=== PATIENT | male | born 1950 | race Caucasian/White ===

== ENCOUNTER → 2018-10-17 10:15 | Outpatient (CLI) | payer MEDICARE | END | disposition home or self-care (01) | LOC: D.US 10:15 | DX: E04.1 Nontoxic single thyroid nodule (principal) ==

== ENCOUNTER 2020-11-25 19:33 | Inpatient (IN) | payer MEDICARE ==
[~2020-11-25] VITALS: Ht 182.9 cm; Wt 68.6 kg
--- NOTE | ~2020-11-25 | HEMODYNAMI ---
PATIENT:ROSALIA NEWELL MEDICAL RECORD: [id number] : 54 LOCATION:[id number] ADMISSION DATE: 11/25/20 Generatedon:111:00 Patient name: ROSALIA NEWELL Patient #: [id number] SSN: : 1950 Date of study: 11/27/2020 Page: Of Hemodynamic Procedure Report Patient Data Patient Demographics Procedure consent was obtained First Name: ROSALIA Gender: Male Last Name: REECE : 1950 Patient #: [id number] Age: 70 year(s) Race: Additional ID: [id number] Contact details Address: [address] [address] State: [place] City: [place] Zip code: [address] Admission Admission Data Admission Date: 11/25/2020 Admission Time: 20:50 Arrival Date: 11/25/2020 Arrival Time: 20:50 Admit Source: Emergency Insurance Payor: Medicare department [facility] #: [id number] Room #: [id number] Height (in.): 71.65 BSA: 2 (m2) Height (cm.): 182 BMI: 23.85 (kg/m2) Weight (lbs.): 174.17 Weight (kg.): 79 Lab Results Lab Result Date: 11/27/2020 Lab Result Time: 0:00 Biochemistry Name Units Result Min Max BUN mg/dl 24 --(----)-* 7 18 Creatinine mg/dl 1.3 --(---*)-- 0.6 1.3 eGFR ml/min 58 *-(----)-- 90 120 NONAFRICAN CBC Name Units Result Min Max Hemoglobin g/dl 12.9 -*(----)-- 13.5 17.5 Procedure Procedure Types Cath Procedure Diagnostic Procedure LHC LH w/Coronaries Sedation Charges Moderate Sedation 25-39 minutes PCI Procedure Coronary Stent Coronary Stent Initial x2 Hemochron ACT Test Procedure Description Procedure Date Procedure Date: 11/27/2020 Procedure Start Time: 10:23 Procedure End Time: 10:55 Procedure Staff Name Function Eder Rebolledo MD Performing Physician Brooke Martini RT Monitor Rosalinda Ward RT Scrub Wilmer Frye RN Nurse Procedure Data Cath Procedure Fluoroscopy Diagnostic fluoroscopy Total fluoroscopy Time: 9.9 time: 9.9 min min Diagnostic fluoroscopy Total fluoroscopy dose: dose: 1033 mGy 1033 mGy Contrast Material Contrast Material Type Amount (ml) Isovue 300 178 Entry Location Entry Primary Successful Side Size Upsize Upsize Entry Closure Martínez ccessful Closure Location (Fr) 1 (Fr) 2 (Fr) Remarks Device Remarks Radial Right 6 Fr Mechanical artery Short Compression Estimated blood loss: 5 ml Diagnostic catheters Device Type Used For End Catheter Placement DIAGNOSTIC [place] 110cm 5 Multi-vessel Fr catheter ([id number]) Angiography Procedure Complications No complications Procedure Medications Medication Administration Route Dosage Oxygen etCO2 Nasal cannula 2 l/min Lidocaine 2% 20 Heparin Flush Bag added to field 2 bags (1000units/500ml NS) 0.9% NaCl I.V. 100 ml/hr Versed I.V. 0.5 mg Fentanyl I.V. 25 mcg Radial Cocktail I.A. 1 syringe (Verapamil 2mg/Nitro 400mcg/Heparin 1500units) Versed I.V. 0.5 mg Fentanyl I.V. 25 mcg Heparin Bolus I.V. 5000 units Integrilin (Bolus I.V. 7.3 ml 2mg/ml) Integrilin Drip I.V. drip 12.6 ml/hr (75mg/100ml) Vasotec 2.5 mg Hemodynamics Rest BSA: 2 (m2) HGB: 12.9 (g/dl) O2 Consumption: Estimated: 236.92 (ml/min) O2 Consu mption indexed: Estimated:118.46 (ml/min/m) Heart Rate: 76 (bpm) Pressure Samples Time Site Value (mmHg) Purpose Heart Use Rate(bpm) 10:25 LV 100/8,10 Snapshot 72 10:26 AO 96/66(79) Pullback 70 10:26 LV 96/5,10 Pullback 70 Gradients Valve Time Site 1 Site 2 Mean SEP/DFP Peak To Heart Use (mmHg) (sec/min) Peak Rate (mmHg) (bpm) Aortic 10:26 LV AO 0 1 0 70 96/5,10 96/66(79) Calculations Valve P-P Mean Valve Index Valve Source Name Gradient Area Flow (cm2) Aortic 0 0 0 0 Snapshots Pre Cath Intra NCS Post Cath Vital Signs Time Heart Resp SPO2 etCO2 NIBP (mmHg) Rhythm Pain Sedation Rate (ipm) (%) (mmHg) Status Level (bpm) 10:15:35 77 14 98 1.5 154/98(123) NSR 0 (11) 8(A) , No pain 10:19:53 76 13 99 0.7 151/93(121) NSR 0 (11) 8(A) , No pain 10:24:11 75 14 99 1.5 139/82(109) NSR 0 (11) 8(A) , No pain 10:28:23 79 13 98 12.1 124/81(95) NSR 0 (11) 8(A) , No pain 10:32:35 76 12 98 13.6 135/84(106) NSR 0 (11) 8(A) , No pain 10:36:51 77 14 99 18.9 146/88(110) NSR 0 (11) 8(A) , No pain 10:41:07 74 13 99 15.9 152/91(122) NSR 0 (11) 8(A) , No pain 10:45:27 73 13 99 1.5 156/90(126) NSR 0 (11) 8(A) , No pain 10:49:49 74 14 99 9.8 165/98(127) NSR 0 (11) 8(A) , No pain 10:54:15 75 16 100 9.1 170/105(143) NSR 0 (11) 8(A) , No pain Medications Time Medication Route Dose Verified Delivered Reason Not es Effectiveness by by 10:15:28 Oxygen etCO2 2 l/min Eder Guillen used for Nasal St Jamison Frye RN procedure cannula 10:16:06 Lidocaine 2% 20ml Eder Gaines for local vial [facility] anesthetic MD BATISTA 10:16:12 Heparin Flush added 2 bags Eder Gaines used for Bag to [facility] procedure (1000units/500ml field MD BATIST[place] NS) 10:16:21 0.9% NaCl I.V. 100 Eder Guillen Per physician ml/hr St Jamison Frye RN, MD 10:16:42 Versed I.V. 0.5 mg Eder Guillen for sedation St Jamison Frye RN, MD 10:16:53 Fentanyl I.V. 25 mcg Eder Guillen for sedation St Jamison Frye RN, MD 10:23:28 Radial Cocktail I.A. 1 Eder Gaines for (Verapamil syringe AmauryJamison Rebolledo vasodilation 2mg/Nitro MD BATISTA 400mcg/Heparin 1500units) 10:23:40 Versed I.V. 0.5 mg Eder Gaines for sedation St Jamison Rebolledo MD, MD 10:23:43 Fentanyl I.V. 25 mcg Eder Gaines for sedation St Jamison Rebolledo MD, MD 10:31:22 Heparin Bolus I.V. 5000 Eder Guillen for gianna ified units St Jamison Frye RN anticoagulation with dr MD wilson 10:33:03 Integrilin I.V. 7.3 ml Eder Guillen for was tl 2.7 (Bolus 2mg/ml) St Jamison Frye RN antiplatelet ml of vial MD therapy 10:51:26 Integrilin Drip I.V. 12.6 Eedr bonilla To be (75mg/100ml) drip ml/hr St Jamison Frye RN antiplatelet infusing MD therapy until cleared to take antiplatelet by mouth. 10:51:55 Vasotec IV 2.5 mg Eder Guillen Per physician St Jamison Frye RN, MD Procedure Log Time Note 9:41:27 Diagnostic Cath Status : Urgent 9:42:00 Informed consent obtained and on chart 9:42:12 Admit Source: Emergency department 9:42:17 Arrival Date: 11/25/2020 8:50:00 PM 9:42:43 Insurance Payor : Medicare 9:42:46 Patient Height : 71.65 inches 9:42:50 Patient Weight : 174.17 lbs 9:43:44 Lab Result : eGFR NONAFRICAN 58 ml/min 9:43:44 Lab Result : Creatinine 1.3 mg/dl 9:43:44 Lab Result : BUN 24 mg/dl 9:43:44 Lab Result : Hemoglobin 12.9 g/dl 9:43:52 Procedure Status Urgent Heart Cath (IP). 9:43:58 Wilmer Frye RN sent for patient. Start room use. 9:44:00 Time tracking: Regular hours (M-F 7:00 - 5:00) 9:44:04 Plan of Care:Hemodynamics will remain stable., Cardiac rhythm will remain stable., Comfort level will be maintained., Respiratory function will remain adequate., Patient/ family verbilizes understanding of procedure., Procedure tolerated without complication., Recovers from procedure without complications.. 10:01:37 Patient received from Med/Surg to CCL 1 Alert and oriented. Tansferred to table in Supine position. 10:01:38 Warm blankets applied, and mitra hugger turned on for patient comfort. 10:01:39 Correct patient and procedure confirmed by team. 10:01:39 ECG and BP/O2 sat monitors applied to patient. 10:14:27 Baseline sample Acquired. 10:14:27 Vital chart was started 10:14:38 Full Disclosure recording started 10:14:42 H&P Date Dictated: 11/27/2020 New H&P dictated by physician.. 10:14:44 Pre-procedure instructions explained to patient. 10:14:44 Pre-op teaching completed and patient verbalized understanding. 10:14:48 Family in patients room. 10:14:49 Patient NPO since Midnight. 10:15:28 Oxygen 2 l/min etCO2 Nasal cannula was administered by Wilmer Frye RN; used for procedure; Verbal order read back and verified. 10:15:36 Is the patient allergic to Iodine/contrast media? No. 10:15:36 Was the patient premedicated? Yes 10:15:37 Is patient on blood thinner?No 10:15:39 Patient diabetic? Unknown. 10:15:43 Previous problem with sedation/anesthesia? Unknown ? 10:15:45 Snore? Unknown 10:15:47 Sleep apnea? Unknown 10:15:48 Deviated septum? Unknown 10:15:52 Opens mouth fully? Unknown 10:15:53 Sticks out tongue? Unknown 10:15:55 Airway obstruction? Unknown ? 10:15:58 Dentures? Unknown ? 10:16:03 Pre procedure: right dorsailis pedis pulse 1+ Palpable, but thready & weak; easily obliterated 10:16:06 Lidocaine 2% 20ml vial was administered by Eder Rebolledo MD; for local anesthetic; Verbal order read back and verified. 10:16:06 Pre procedure: left dorsailis pedis pulse 1+ Palpable, but thready & weak; easily obliterated 10:16:08 Patient pain scale 0/10 ?. 10:16:12 Heparin Flush Bag (1000units/500ml NS) 2 bags added to field was administered by Eder Rebolledo MD; used for procedure; Verbal order read back and verified. 10:16:14 IV patent on arrival in right forearm with 0.9% NaCl at [facility]. 10:16:15 Lab results completed and on chart. 10:16:20 Right Radial & Right Groin area was prepped with chlora-prep and draped in sterile fashion 10:16:21 0.9% NaCl 100 ml/hr I.V. was administered by Wilmer Frye RN; Per physician; Verbal order read back and verified. 10:16:21 Alarms reviewed by R. N. 10:16:22 Sharps counted by scrub and verified by R.N. 10:16:23 Physician arrived 10:16:23 Final Timeout: patient, procedure, and site verified with staff and physician. All members of the team are in agreement. 10:16:24 --------ALL STOP TIME OUT------ 10:16:26 Right Radial & Right Groin site verified by team. 10:16:30 Fire Safety Assessment: A--An alcohol-based skin anteseptic being used preoperatively., C--Open oxygen or nitrous oxide is being used., D--An ESU, laser, or fiber-optic light is being used. 10:16:34 Physical assessment completed. ASA score P 3 - A patient with severe systemic disease as per Eder Rebolledo MD. 10:16:42 Versed 0.5 mg I.V. was administered by Wilmer Frye RN; for sedation; Verbal order read back and verified. 10:16:53 Fentanyl 25 mcg I.V. was administered by Wilmer Frye RN; for sedation; Verbal order read back and verified. 10:17:13 3a) 45-59 Moderately reduced kidney function. 10:17:16 Maximum allowable contrast dose (3.7 X eGFR X 0.75)160 ml. 10:17:20 Sedation plan: IV Moderate Sedation Medication:Versed, Fentanyl 10:17:30 Use device set Radial Dx or PCI 10:17:31 ACIST Syringe (82510) opened to sterile field. 10:17:31 Medline Cath Pack ([id number]) opened to sterile field. 10:17:32 Bag Decanter (2001S) opened to sterile field. 10:17:32 ACIST Hand Control (74366) opened to sterile field. 10:17:33 ACIST Manifold (82795) opened to sterile field. 10:17:34 Tegaderm 4 x 4 (1626W) opened to sterile field. 10:17:35 MBrace Wrist Support ([id number]) opened to sterile field. 10:17:36 SHEATH 6FR RAIN (4933052) opened to sterile field. 10:17:37 EMERALD Guide Wire (507-244) opened to sterile field. 10:18:23 Family of pt was in room upon transfer to laborer road. Pt was non responisive to verbal and is a fall risk. 10:23:28 Radial Cocktail (Verapamil 2mg/Nitro 400mcg/Heparin 1500units) 1 syringe I.A. was administered by Eder Rebolledo MD; for vasodilation; Verbal order read back and verified. 10:23:39 Procedure started. 10:23:40 Versed 0.5 mg I.V. was administered by Eder Rebolledo MD; for sedation; Verbal order read back and verified. 10:23:42 Local anesthetic to right radial artery with Lidocaine 2% by Eder Rebolledo MD.INITIAL ACCESS ONLY 10:23:43 Fentanyl 25 mcg I.V. was administered by Eder Rebolledo MD; for sedation; Verbal order read back and verified. 10:23:51 A 6 Fr Short sheath was inserted into the Right Radial artery 10:24:00 A DIAGNOSTIC [place] 110cm 5 Fr catheter ([id number]) was advanced over the wire and used for Multi-vessel Angiography. 10:25:46 LV hemodynamics recorded. 10:25:47 LV gram done using PALOMINO 10:25:49 Injector settings: Ml/sec: 5, Volume: 15, 10:25:56 EF : 55 % 10:25:59 RCA angiography performed. 10:26:01 Injector settings: Ml/sec: 3, Volume: 6, 10:26:35 LCA angiography performed. 10:26:38 Injector settings: Ml/sec: 3, Volume: 6, 10:28:55 Catheter removed. 10:29:44 Asahi Minamo 300cm wire opened to sterile field. 10:29:45 INFLATOR Merit BasixCompak (CP3983) opened to sterile field. 10:29:45 GUIDE 6FR XBLAD 3.5 catheter ([id number]) opened to sterile field. 10:29:52 INFLATOR Merit BasixCompak (PJ8905) opened to sterile field. 10:31:22 Heparin Bolus 5000 units I.V. was administered by Wilmer Frye RN; for anticoagulation; verified with dr wilson Verbal order read back and verified. 10:31:34 Proceeding to intervention. 10:31:42 6 Fr XBLAD 3.5 guide catheter was inserted over the wire 10:31:46 MINAMO wire advanced. 10:33:03 Integrilin (Bolus 2mg/ml) 7.3 ml I.V. was administered by Wilmer Frye RN; for antiplatelet therapy; wasted 2.7 ml of vial Verbal order read back and verified. 10:34:08 Wire advanced across lesion. 10:36:39 Place stent Inflation Number: 1 A INTEGRITY RX 3.5 x 15 stent ([id number]) was prepped and advanced across the Mid CX 90. The stent was deployed at 14 [place] for 0:30 (min:sec) 0. 10:37:32 Stent catheter was removed intact over wire. 10:39:46 Place stent Inflation Number: 1 A INTEGRITY RX 3.5 x 15 stent ([id number]) was prepped and advanced across the Prox CX 90. The stent was deployed at 14 [place] for 0:30 (min:sec) 0. 10:42:27 Stent catheter was removed intact over wire. 10:42:33 Wire redirected to LAD. 10:45:26 Inflate balloon Inflation number: 1 A EUPHORA 3.0 x 15 Balloon ([id number]) was prepped and advanced across the Mid LAD 90, then inflated to 14 [place] for 0:30 (min:sec) . 10:45:46 Inflation number: 2 The EUPHORA 3.0 x 15 Balloon ([id number]) was reinflated across the Mid LAD , to 14 [place] for 0:30 (min:sec) . 10:46:14 Inflation number: 3 The EUPHORA 3.0 x 15 Balloon ([id number]) was reinflated across the Mid LAD , to 14 [place] for 0:30 (min:sec) . 10:46:35 Inflation number: 1 The EUPHORA 3.0 x 15 Balloon ([id number]) was reinflated across the Prox LAD 90, to 14 [place] for 0:30 (min:sec) . 10:47:09 Inflation number: 2 The EUPHORA 3.0 x 15 Balloon ([id number]) was reinflated across the Prox LAD , to 14 [place] for 0:30 (min:sec) . 10:47:49 Inflation number: 3 The EUPHORA 3.0 x 15 Balloon ([id number]) was reinflated across the Prox LAD , to 16 [place] for 0:30 (min:sec) . 10:48:28 Balloon removed over the wire. 10:51:26 Integrilin Drip (75mg/100ml) 12.6 ml/hr I.V. drip was administered by Wilmer Frye RN; for antiplatelet therapy; To be infusing until cleared to take antiplatelet by mouth. Verbal order read back and verified. 10:51:35 Place stent Inflation Number: 4 A INTEGRITY RX 3.0 x 18 stent ([id number]) was prepped and advanced across the Mid LAD 90. The stent was deployed at 16 [place] for 0:30 (min:sec) 0. 10:51:51 Stent catheter was removed intact over wire. 10:51:53 Wire removed. 10:51:54 Guide catheter removed. 10:51:55 Vasotec 2.5 mg IV was administered by Wilmer Frye RN; Per physician; Verbal order read back and verified. 10:52:05 ZEPHYR REGULAR TR BAND ([id number]) opened to sterile field. 10:52:30 Sheath removed intact; hemostasis achieved with Mechanical Compression to the Right Radial artery. 10:52:35 Procedure ended.(Physican Out) 10:53:01 Fluoroscopy time 09.90 minutes. 10:53:05 Flurop Dose total: 1033 10:53:05 Fluoroscopy dose: 1033 mGy 10:53:10 Dose Area Product 17250 mGy/cm. 10:53:14 Contrast amount:Isovue 300 178ml. 10:53:17 Maximum allowable dose exceeded? Yes. 10:53:20 [place] band inflated with 12cc of air. 10:53:27 Post right radial artery:stable 10:53:28 Post Procedure Pulses reassessed and unchanged 10:53:31 Post procedure rhythm: unchanged. 10:53:34 Estimated blood loss: 5 ml 10:53:36 Post procedure instruction explained to patient.Patient verbalizes understanding. 10:53:36 Patient needs reinforcement of post procedure teaching. 10:55:19 Procedure type changed to Cath procedure, Diagnostic procedure, LHC, [facility] w/Coronaries, Sedation Charges, Moderate Sedation 25-39 minutes, PCI procedure, Coronary Stent, Coronary Stent Initial x2, Hemochron ACT Test 10:55:21 Procedure and supply charges have been captured, reviewed, submitted and are correct. 10:55:25 Procedure Complication : No complications 10:55:28 Vital chart was stopped 10:55:29 [facility] Findings: MVD- PCI performed (see procedure note) 10:55:32 Operative report dictated upon procedure completion. 10:55:32 See physician's report for complete and final results. 10:55:42 Report given to Med/Surg. 10:55:45 Patient transfered to Med/Surg with Stretcher. 10:55:47 Procedure ended. 10:55:47 Full Disclosure recording stopped 10:55:57 End room use (Document Last) 10:59:43 ACT drawn and resulted at out of range high seconds. (normal therapeutic range 180-240 seconds). Intervention Summary Intervention Notes Time ActionType Lesion and Equipment Action# Pressure Duration Attributes Used 10:36:39 Place stent Mid CX INTEGRITY RX 1 14 00:30 3.5 x 15 stent ([id number]) 10:39:46 Place stent Prox CX INTEGRITY RX 1 14 00:30 3.5 x 15 stent ([id number]) 10:45:26 Inflate Mid LAD EUPHORA 3.0 1 14 00:30 balloon x 15 Balloon ([id number]) 10:45:46 Reinflate Mid LAD EUPHORA 3.0 2 14 00:30 balloon x 15 Balloon ([id number]) 10:46:14 Reinflate Mid LAD EUPHORA 3.0 3 14 00:30 balloon x 15 Balloon ([id number]) 10:46:35 Reinflate Prox LAD EUPHORA 3.0 1 14 00:30 balloon x 15 Balloon ([id number]) 10:47:09 Reinflate Prox LAD EUPHORA 3.0 2 14 00:30 balloon x 15 Balloon ([id number]) 10:47:49 Reinflate Prox LAD EUPHORA 3.0 3 16 00:30 balloon x 15 Balloon ([id number]) 10:51:35 Place stent Mid LAD INTEGRITY RX 4 16 00:30 3.0 x 18 stent ([id number]) Device Usage Item Name Manufacture Quantity Catalog Hospital Part Current Minim al Lot# / Number Charge Number Stock Stock Serial# Code ACIST Acist 1 14748 693858 710351 584970 20 Syringe Medical (90242) Systems Inc Medline Cath Medline 1 [id number] 479523 25087 205657 5 Pack ([id number]) Bag Decanter Microtek 1 2001S 910855 09961 853405 5 (2001S) Medical Inc. ACIST Hand Acist 1 84615 140230 245229 370841 5 Control Medical (47272) Systems Inc ACIST Acist 1 00387 971441 597125 189175 5 Manifold Medical (56279) Systems Inc Tegaderm 4 x 3M 1 1626W 804867 482013 803569 5 4 (1626W) MBrace Wrist Advanced 1 140-0250-00 486293 49796 734231 5 Support Vascular ([id number]) Dynamics SHEATH 6FR Cardinal 1 6103689 884794 1995460 980481 5 [facility] (7137524) EMERALD Cardinal 1 595-184 097522 501753 433145 5 Guide [address] [facility] (583-817) DIAGNOSTIC Terumo 1 50-3938 557785 913583 892067 5 [place] 110cm 5 Fr catheter (479888) [facility] Intecc 1 [id number] 469386 8134472 496589 0 300cm wire INFLATOR Merit 2 ER1634 897370 559111 796740 15 FlightCar Medical BasixCompak (AV4161) GUIDE 6FR Cardinal 1 [id number] 629381 922923 736766 10 XBLAD 3.5 Health catheter ([id number]) INTEGRITY RX Medtronic 2 [id number] 180993 436121 940780 5 [id number] 3.5 x 15 [id number] stent ([id number]) EUPHORA 3.0 Medtronic 1 [id number] 415275 798924 486137 5 [id number] x 15 Balloon ([id number]) INTEGRITY RX Medtronic 1 [id number] 362561 122456 402197 5 [id number] 3.0 x 18 stent ([id number]) ZEPHYR Cardinal 1 898886 469541 7816157 078620 5 REGULAR TR Health BAND ([id number]) Signature Audit [place] Stage Time Signature Unsigned Intra-Procedure 11/27/2020 Brooke Martini 10:57:12 AM RT(R) Intra-Procedure 11/27/2020 Wilmer Frye RN 10:57:30 AM Intra-Procedure 11/27/2020 Eder Ponce 11:00:23 AM Jamison [facility] [address] [id number]
[2020-11-25] MEDS ORDERED: LEVOXYL50 MCG PO (19:46)
[2020-11-25] MEDS ORDERED: LISINOPRIL20 MG PO (19:46)
[2020-11-25 20:11] LABS: BASOPHILS 0.6 % (0-2); EOSINOPHILS 1.2 % (0-7); HEMATOCRIT 40.4 % (42.0-54.0); IMMATURE GRANULOCYTES 0.2 % (0-5); LYMPHOCYTE ABS# 0.73 10x3/uL (1.32-3.57); LYMPHOCYTES 14.6 % (15-50); MCH 29.3 pg (26.0-34.0); MCHC 34.7 g/dL (31.0-37.0); MCV 84.5 fL (80.0-100.0); MEAN PLATELET VOLUME 9.4 fL (7.4-10.4); MONOCYTES 10.8 % (2-11); NEUTROPHIL ABS# 3.62 10x3/uL (1.78-5.38); NEUTROPHILS 72.6 % (40-80); PLATELET COUNT 259 10x3/uL (130-400); RBC 4.78 10x6/uL (4.20-6.10); RDW 13.6 % (11.5-14.5)
[2020-11-25 20:19] LABS: APTT 24.3 SECONDS (22.8-39.4); INR 1.13 (0.85-1.17); PROTIME 13.4 SECONDS (11.6-15.0)
[2020-11-25 20:20] LABS: CALC OSMOLALITY 274 mosm/kg (275-300); CARBON DIOXIDE 28.8 mmol/L (21.0-32.0); CHLORIDE - SERUM 102 mmol/L (98-107); CREATININE - SERUM 1.4 mg/dL (0.6-1.3); GLUCOSE 106 mg/dL (74-106); POTASSIUM - SERUM 4.1 mmol/L (3.5-5.1); SODIUM 137 mmol/L (136-145); UREA NITROGEN 15 mg/dL (7-18); eGFR NON AFRICAN AMERICAN 53 mL/min (90-120)
[2020-11-25 20:36] LABS: ALBUMIN 3.9 g/dL (3.4-5.0); ALKALINE PHOSPHATASE 138 U/L (30-120); ALT (SGPT) 17 U/L (10-68); BILIRUBIN - TOTAL 0.66 mg/dL (0.2-1.3); CREATINE KINASE 132 UL (21-232); MAGNESIUM - SERUM 2.3 mg/dL (1.8-2.4); PROTEIN - SERUM 8.5 g/dL (6.4-8.2); THYROID STIMULATING HORMONE 1.98 uIU/mL (0.36-3.74); TROPONIN-I < 0.017 ng/mL (0.000-0.060)
--- NOTE | 2020-11-25 21:00 | NUR ---
PT NOTED TO HAVE BANDAGE TO L FOREARM FOR A FALL YESTERDAY DENIES OTHER INJURY. SKIN NOTED.
[2020-11-25 21:34] VITALS: BP 145/86
[2020-11-25 21:45] LABS: BILIRUBIN NEGATIVE (NEGATIVE); KETONE SMALL mg/dL (NEGATIVE); NITRITE NEGATIVE (NEGATIVE); UROBILINOGEN NORMAL mg/dL (< 2)
[2020-11-25 21:49] LABS: BACTERIA FEW HPF (NONE SEEN); SQUAMOUS EPITHELIAL NONE SEEN HPF (0-4); WHITE CELLS - URINE 0-5 HPF (0-1)
[2020-11-25 21:54] LABS: UDS - AMPHET POSITIVE QUAL (NEGATIVE); UDS - BARB NEGATIVE QUAL (NEGATIVE); UDS - BENZO NEGATIVE QUAL (NEGATIVE); UDS - COCAINE NEGATIVE QUAL (NEGATIVE); UDS - OPIATE NEGATIVE QUAL (NEGATIVE); UDS - PCP NEGATIVE QUAL (NEGATIVE); UDS - THC NEGATIVE QUAL (NEGATIVE)
[2020-11-26 02:07] VITALS: BP 187/97
[2020-11-26 04:00] VITALS: BP 158/89
[2020-11-26 06:32] LABS: BASOPHILS 0.8 % (0-2); EOSINOPHILS 1.4 % (0-7); HEMATOCRIT 37.9 % (42.0-54.0); HEMOGLOBIN 12.9 g/dL (13.5-17.5); IMMATURE GRANULOCYTES 0.2 % (0-5); LYMPHOCYTE ABS# 0.86 10x3/uL (1.32-3.57); LYMPHOCYTES 17.1 % (15-50); MCH 28.9 pg (26.0-34.0); MEAN PLATELET VOLUME 9.5 fL (7.4-10.4); MONOCYTES 13.5 % (2-11); NEUTROPHIL ABS# 3.37 10x3/uL (1.78-5.38); PLATELET COUNT 272 10x3/uL (130-400); RBC 4.46 10x6/uL (4.20-6.10); RDW 13.5 % (11.5-14.5)
[2020-11-26 06:53] LABS: ANION GAP 13.9 mmol/L (8-16); CALCIUM 8.8 mg/dL (8.5-10.1); CARBON DIOXIDE 24.9 mmol/L (21.0-32.0); CHOL - HDL RATIO 3.3 ratio (2.3-4.9); CREATININE - SERUM 1.2 mg/dL (0.6-1.3); LDL-HDL RATIO 2.1 ratio (1.5-3.5); MAGNESIUM - SERUM 2.2 mg/dL (1.8-2.4); PHOSPHOROUS 3.6 mg/dL (2.5-4.9); POTASSIUM - SERUM 3.8 mmol/L (3.5-5.1)
[2020-11-26 08:49] VITALS: BP 221/100
--- NOTE | 2020-11-26 09:00 | NUR ---
MEL DUARTE MADE AWARE OF PATIENT BP 220/120. PRN APRESOLINE GIVEN. ORDERS PLACED BY APARTMENT PROPERTY MANAGER FOR HOME MEDICATIONS AND PRN MEDICATIONS.
--- NOTE | 2020-11-26 09:02 | NUR ---
TARGET DEVELOPERQuintin HIDALGO STATES TO START PATIENT ON REGULAR DIET. ORDER PLACED.
--- NOTE | 2020-11-26 09:19 | NUR ---
PATIENT REFUSING MRI. ORDER FOR ONE TIME DOSE ATIVAN PLACED BY MEL HIDALGO BUT PATIENT BACK IN ROOM NOW. MRI STATES WILL CALL WHEN ATIVAN NEEDS TO BE GIVEN.
--- NOTE | 2020-11-26 09:29 | NUR ---
ALERT AND ORIENTED TO SELF AND PLACE. ASSESSMENT COMPLETE. DENIES NEEDS. OFFERED PATIENT EGG CRATE MATTRESS D/T PATIENT STATING BED IS UNCOMFORTABLE AND CAN'T SLEEP. REFUSES EGG CRATE. REFUSES SCDS. BED LOW. BED ALARM ON. CALL MOSLEY AND PERSONAL ITEMS IN REACH. WILL CONTINUE TO MONITOR.
--- NOTE | 2020-11-26 10:10 | NUR ---
PATIENT ASSISTED UP TO CHAIR D/T HURTING. PATIENT STATES WANTS ATIVAN NOW. CANNOT HAVE ATIVAN UNTIL TIME FOR MRI. STATES "YALL AREN'T DOING ANYTHING TO HELP ME. I'VE GOTTEN WORSE SINCE I GOT HERE." ABLE TO GET PATIENT TO TAKE LISINOPRIL BUT REFUSES ALL OTHER MEDICATIONS AT THIS TIME. WILL TRY AGAIN. PATIENT'S SISTER IN ROOM. CHAIR ALARM ON.
--- NOTE | 2020-11-26 10:26 | NUR ---
PATIENT'S BP NOW 140/90.
--- NOTE | 2020-11-26 10:39 | NUR ---
CALLED NOMI AT MONITOR FOR TELE FOR PATIENT.
--- NOTE | 2020-11-26 10:48 | NUR ---
EGG CRATE PLACED ON PATIENT'S MATTRESS AND PATIENT PLACED BACK IN BED FOR ULTRASOUND.
--- NOTE | 2020-11-26 11:33 | NUR ---
SPOKE WITH MEL HIDALGO ABOUT ONE TIME DOSE ATIVAN. STATES TO LEAVE ON MAR UNTIL TIME FOR PATIENT TO GO TO MRI. GIVE BEFORE MRI.
[2020-11-26 11:44] VITALS: BP 144/76
--- NOTE | 2020-11-26 13:08 | NUR ---
PATIENT AND SISTER UPSET THAT PATIENT HAS NOT HAD MRI AND HAS NOT SEEN SPEECH THERAPIST. MRI WAS UNABLE TO BE PERFORMED THIS AM D/T PATIENT WOULD NOT COOPERATE. MRI NOW HAS TO FIT PATIENT INTO SCHEDULE LATER THIS AFTERNOON D/T NO OPEN TIME SLOTS RIGHT NOW. PATIENT AND SISTER HAVE BEEN MADE AWARE OF THIS. SPOKE WITH VIVIAN FROM SPEECH THERAPY WHO STATES PATIENT IS ON HIS LIST TO BE SEEN BUT ALSO HAS SEVERAL OTHER PATIENT'S TO SEE. PATIENT AND SISTER MADE AWARE.
--- NOTE | 2020-11-26 13:16 | NUR ---
PATIENT'S SISTER OUT AT DESK UPSET AND WANTING TO TALK TO INSTITUTE DIRECTOR. MLE HIDALGO ON FLOOD MADE AWARE AND STATES THAT SHE WENT IN ROOM ALREADY AND BOTH PATIENT AND SISTER WERE SLEEPING SO SHE WILL HAVE TO GO BACK AND SEE THEM WHEN SHE CAN. PATIENT'S SISTER MADE AWARE.
--- NOTE | 2020-11-26 13:18 | NUR ---
ADDITION TO PREVIOUS NOTE. PATIENT'S SISTER ALSO STATING THAT PATIENT WANTS TO LEAVE. MADE AWARE THAT IF PATIENT LEAVES, INSURANCE WILL NOT COVER STAY.
--- NOTE | 2020-11-26 13:35 | NUR ---
PATIENT'S SISTER AT DESK REQUESTING TO TALK TO CLINICAL PROJECT LEADER. HOUSE SUP CALLED AND STATES WILL COME TALK WITH PATIENT AND FAMILY.
[2020-11-26 13:36] VITALS: BMI 23.7
--- NOTE | 2020-11-26 13:50 | NUR ---
REHAB PRESCREEN: THANK Y0U FOR THE REFERRAL. PT STILL HAS PT AND ST EVALUATIONS PENDING AT THIS TIME. MRI IS STILL PENDING WELL. REHAB WILL CONTINUE TO FOLLOW FOR NOW UNTIL WE HAVE FURTHER INFORMATION THAT WILL ASSIST IN DETERMINATION. PETER ZACARIAS RN CLINICAL LIAISON ACUTE INPATIENT REHAB.
--- NOTE | 2020-11-26 14:16 | NUR ---
DR URIOSTEGUI MADE AWARE OF CONSULT. PATIENT TAKEN FOR MRI.
--- NOTE | 2020-11-26 15:57 | NUR ---
EKG PERFOMED AND SCANNED INTO CHART.
[2020-11-26 16:52] VITALS: BP 116/61
[2020-11-26 16:59] LABS: CKMB 6.4 U/L (0.0-3.6); CREATINE KINASE 140 UL (21-232)
[2020-11-26 17:01] LABS: TROPONIN-I 0.816 ng/mL (0.000-0.060)
--- NOTE | 2020-11-26 17:02 | NUR ---
PATIENT TROPONIN 0.816. MEL JUNIOR PAGED TO NOTIFY. WAITING CALL BACK.
--- NOTE | 2020-11-26 17:33 | NUR ---
SPOKE WITH MEL JUNIOR ABOUT PATIENT'S TROPONIN LEVEL. CARDIOLOGY CONSULT PLACED PER MEL.
[2020-11-26 20:00] VITALS: BP 131/78
[2020-11-26 22:44] LABS: CKMB 16.9 U/L (0.0-3.6); CREATINE KINASE 205 UL (21-232)
[2020-11-26 22:47] LABS: TROPONIN-I 4.504 ng/mL (0.000-0.060)
--- NOTE | 2020-11-26 23:33 | NUR ---
NURSE SAW TROPONIN LAB WENT FROM 0.816 TO 4.504. PT CURRENTLY RESTING IN BED WITH FAMILY FRIEND AT BEDSIDE. CALLED WATER PLANT PUMP OPERATOR HOSPITALIST TO NOTIFY. WAS GIVEN ORDER TO CONSULT CARDIOLOGY MIKE. PAGED WATER PLANT PUMP OPERATOR CARDIO AT [phone]. WAITING ON RETURNED PHONE CALL.
--- NOTE | 2020-11-26 23:40 | NUR ---
NURSE RECEIVED PHONE CALL BACK FROM BRENNON DYE. INFORMED ABOUT LAB LEVELS. ORDERED TO KEEP NPO TONIGHT AND CARDIO WILL SEE IN THE MORNING.
[2020-11-27] VITALS (13 sets, daily range): BP systolic 132–210; BP diastolic 73–112; Ht 182.9 cm; Wt 68.6 kg
[2020-11-27 06:54] LABS: BASOPHILS 0.2 % (0-2); EOSINOPHILS 0.4 % (0-7); HEMATOCRIT 38.5 % (42.0-54.0); HEMOGLOBIN 12.9 g/dL (13.5-17.5); IMMATURE GRANULOCYTES 0.2 % (0-5); LYMPHOCYTE ABS# 0.51 10x3/uL (1.32-3.57); LYMPHOCYTES 9.2 % (15-50); MCH 28.7 pg (26.0-34.0); MCHC 33.5 g/dL (31.0-37.0); MCV 85.7 fL (80.0-100.0); MEAN PLATELET VOLUME 9.4 fL (7.4-10.4); NEUTROPHIL ABS# 4.53 10x3/uL (1.78-5.38); PLATELET COUNT 255 10x3/uL (130-400); RBC 4.49 10x6/uL (4.20-6.10); RDW 13.7 % (11.5-14.5); WBC 5.5 10x3/uL (4.8-10.8)
[2020-11-27 07:37] LABS: CALC OSMOLALITY 280 mosm/kg (275-300); CALCIUM 8.8 mg/dL (8.5-10.1); CARBON DIOXIDE 24.1 mmol/L (21.0-32.0); CHLORIDE - SERUM 105 mmol/L (98-107); CKMB 16.1 U/L (0.0-3.6); CREATINE KINASE 215 UL (21-232); CREATININE - SERUM 1.3 mg/dL (0.6-1.3); GLUCOSE 74 mg/dL (74-106); MAGNESIUM - SERUM 2.3 mg/dL (1.8-2.4); PHOSPHOROUS 3.5 mg/dL (2.5-4.9); SODIUM 139 mmol/L (136-145); TROPONIN-I 3.636 ng/mL (0.000-0.060); UREA NITROGEN 24 mg/dL (7-18); eGFR NON AFRICAN AMERICAN 58 mL/min (90-120)
[2020-11-27 09:33] LABS: CHOL - HDL RATIO 2.9 ratio (2.3-4.9); LDL-HDL RATIO 1.8 ratio (1.5-3.5)
--- NOTE | 2020-11-27 20:35 | NUR ---
0700 REPORT RECEIVED SISTER REMAINS AT BEDSIDE PT NPO NEW ORDERS FOR HEART CATH BY DR LOCKHART
--- NOTE | 2020-11-27 20:36 | NUR ---
1000 CONSENTS SIGNED BY SISTER EDUCATED SISTER VERBALIZED UNDERSTANDING
--- NOTE | 2020-11-27 20:37 | NUR ---
1130 RETURN FROM RETRIEVAL SPECIALIST INITIATED FREQUENT VITAL SIGNS
--- NOTE | 2020-11-27 20:37 | NUR ---
1330 BEGAN DECREASING PRESURE TO RIGHT WRIST BALOON
--- NOTE | 2020-11-27 22:56 | NUR ---
PT IN BED WITH FAMILY AT BEDSIDE. PT IS SOMEWHAT AGITATED AT THIS TIME. STATING HE WANTS SOMETHING TO DRINK. REORIENTED PT AND EXPLAINED WHY HE CAN NOT HAVE ANY BY MOUTH AT THIS TIME. BED IN LOWEST POSITION WITH CALL LIGHT IN REACH
[2020-11-28] VITALS (12 sets, daily range): BP systolic 123–187; BP diastolic 73–94
[2020-11-28 06:52] LABS: BASOPHILS 0.5 % (0-2); EOSINOPHILS 1.4 % (0-7); HEMOGLOBIN 13.3 g/dL (13.5-17.5); IMMATURE GRANULOCYTES 0.2 % (0-5); LYMPHOCYTE ABS# 0.48 10x3/uL (1.32-3.57); LYMPHOCYTES 8.2 % (15-50); MCH 28.8 pg (26.0-34.0); MCHC 33.3 g/dL (31.0-37.0); MCV 86.6 fL (80.0-100.0); MEAN PLATELET VOLUME 10.4 fL (7.4-10.4); MONOCYTES 9.9 % (2-11); NEUTROPHIL ABS# 4.68 10x3/uL (1.78-5.38); NEUTROPHILS 79.8 % (40-80); PLATELET COUNT 295 10x3/uL (130-400); RBC 4.62 10x6/uL (4.20-6.10); RDW 13.6 % (11.5-14.5); WBC 5.9 10x3/uL (4.8-10.8)
[2020-11-28 07:15] LABS: ANION GAP 19.9 mmol/L (8-16); CALCIUM 8.6 mg/dL (8.5-10.1); CARBON DIOXIDE 19.7 mmol/L (21.0-32.0); CREATININE - SERUM 1.1 mg/dL (0.6-1.3); MAGNESIUM - SERUM 2.2 mg/dL (1.8-2.4); PHOSPHOROUS 2.8 mg/dL (2.5-4.9); POTASSIUM - SERUM 3.6 mmol/L (3.5-5.1)
--- NOTE | 2020-11-28 07:30 | NUR ---
PT IS RESTING IN BED WITH EYES CLOSED. RESPIRATIONS ARE SHALLOW AND UNLABORED. PT IS AROUSABLE TO VOICE AND OPENS EYES. PIV TO LEFT WRIST REMOVED BY PATIENT. CATHETER TIP INTACT. DRESSING APPLIED. DRESSING TO LEFT ARM SKIN TEAR INPLACE AND CDI. STRAP CUTTER IS ON BUT PT REFUSES TO LEAVE ELECTRODES IN PLACE. PT SPEECH IS GARBELED AND UNABLE TO UNDERSTAND. LUE IS FLACCID AND PT DOES NOT MOVE EXTREMITY. LLE IS STIFF AND PT RESISTS REPOSITIONING OF EXTREMITY. DRESSING TO LLE IN PLACE AND CDI. PT RUE AND RLE WITH APPROPRIATE ROM. PT IS COMBATIVE WITH REPOSITIONING. PT ON PADDED MATTRESS. PT POSITIONED TO LEFT SIDE. PILLOW USED FOR SUPPORT. HEMRRHOID NOTED AND BLEEDING DARK RED BLOOD. PRESSURE APPLIED AND BLEEDING STOPPED. BRIDGETTE DALTON PAGED AND NOTIFIED. TELEPHONE ORDER RECD FOR PREPARATION H. WILL PLACE ORDER. BED IS IN THE LOWEST POSITION. CALL LIGHT AND BEDSIDE TABLE ARE WITHIN REACH. SIDE RAILS X 2. PT ROOM CLOSE TO NURSE STATION. WILL CONT TO MONITOR.
--- NOTE | 2020-11-28 09:30 | NUR ---
PIV RESITE TO LEFT FA X [address] AND WRAPPED FOR PROTECTION. PT WITH ELEVATED BP WITHIN PARAMETERS OF PRN APRESOLINE ADMINISTRATION. WILL ADMINISTER PER ORDER. SEE EMAR. BED IS IN THE LOWEST POSITION. CALL LIGHT AND BEDSIDE TABLE ARE WITHIN REAHC. SIDE RAILS X 2. PT DENIES FURTHER NEEDS. WILL CONT TO MONITOR.
--- NOTE | 2020-11-28 10:15 | NUR ---
Nutrition follow-up: Pt remains NPO after heart cath due to failed swallow evaluation per speech path. labs reviewed Wt: 175# Pt has been agitated per nurse; wants something to drink Recommendations: Repeat swallow evaluation If pt does not have a functional swallow recommend NGT placement and Jevity 1.5 magaly started @ 25 ml/hr with increase to goal rate of 50 ml/hr; 25 ml H2O flush q hour RDN will discussed pt in IDT meeting and make above recommendations to provider. Follow-up: 12/02/20
--- NOTE | 2020-11-28 13:55 | NUR ---
PT SISTER AT BEDSIDE. CONSENT FOR CATH PROCEDURE SIGNED BY PT SISTER. PT SISTER DENIES FURTHER QUESTIONS/CONCERNS/NEEDS AT THIS TIME. SIGNED CONSENT PLACED IN PT CHART.
--- NOTE | 2020-11-28 14:35 | NUR ---
PT SISTER AT BEDSIDE AND STATES "IMPORTANT FAMILY HISTORY INFOMRATION THAT THE DR NEED TO KNOW ABOUT". FAMILY HX INFORMATION INCLUDES ONE SISTER HAS FMD OF CAROTID ARTERIES AND ANOTHER SISTER HAS AN ANEURYSM OF RIGHT SUBCLAVIAN ARTERY.
--- NOTE | 2020-11-28 16:12 | NUR ---
PT TRANSPORTED FROM ROOM VIA BED ESCORTED BY THIS NURSE AND APICULTURIST. BEDSIDE REPORT GIVEN. PT SISTER SENT TO ICU WAITING ROOM. ALL PERSONAL BELONGINGS WITH SISTER.
[2020-11-29] VITALS (21 sets, daily range): BP systolic 112–192; BP diastolic 54–96
[2020-11-29 03:59] LABS: BASOPHILS 0.3 % (0-2); EOSINOPHILS 0.4 % (0-7); HEMATOCRIT 38.1 % (42.0-54.0); HEMOGLOBIN 12.6 g/dL (13.5-17.5); IMMATURE GRANULOCYTES 0.1 % (0-5); LYMPHOCYTE ABS# 0.44 10x3/uL (1.32-3.57); LYMPHOCYTES 5.8 % (15-50); MCH 28.8 pg (26.0-34.0); MCHC 33.1 g/dL (31.0-37.0); MCV 87.2 fL (80.0-100.0); MEAN PLATELET VOLUME 10.4 fL (7.4-10.4); MONOCYTES 9.6 % (2-11); NEUTROPHIL ABS# 6.37 10x3/uL (1.78-5.38); NEUTROPHILS 83.8 % (40-80); PLATELET COUNT 340 10x3/uL (130-400); RBC 4.37 10x6/uL (4.20-6.10); RDW 13.7 % (11.5-14.5)
[2020-11-29 04:00] LABS: WBC 7.6 10x3/uL (4.8-10.8)
[2020-11-29 04:12] LABS: ANION GAP 19.2 mmol/L (8-16); CALCIUM 8.7 mg/dL (8.5-10.1); CREATININE - SERUM 1.3 mg/dL (0.6-1.3); MAGNESIUM - SERUM 2.3 mg/dL (1.8-2.4); PHOSPHOROUS 3.5 mg/dL (2.5-4.9); POTASSIUM - SERUM 4.2 mmol/L (3.5-5.1)
--- NOTE | 2020-11-29 05:52 | NUR ---
0545 PT HAVING DIFFICULTY BREATHING. HOB ELEVATED AND PT SUCTIONED. RESPIRTATORY CALLED FOR ASSISTANCE.
--- NOTE | 2020-11-29 09:58 | OP ---
PATIENT NAME: ROSALIA NEWELL MEDICAL RECORD: [id number] :54 LOCATION:[facility] D.2303 ADMISSION DATE:11/25/20 SURGEON: NGOZI LOCKHART MD DATE OF OPERATION: 11/27/2020 PROCEDURES: Left heart catheterization, selective coronary angiography, right radial approach. CATHETERS: Radial sheath, [place] catheter. The procedure was well tolerated. The patient was returned to the olsen. Sheath removed. TR band was placed. FINDINGS: Left ventriculography 30-degree [place] view, normal wall motion, normal systolic function. CORONARY ANATOMY: LEFT MAIN: Left main is free of disease. LAD: Has severe diffuse stenosis throughout its entire course, greatest being 90%. CIRCUMFLEX: Has 2 sequential 90% stenosis. RIGHT CORONARY: Has ostial mid vessel, 90% stenosis. PLAN: Multi vessel intervention in a staged fashion. DESCRIPTION OF PROCEDURE: Using indwelling radial sheath, an XB LAD guide catheter provided excellent guide catheter support. First addressed was the circumflex. We addressed two 90% stenosis with both a 3.5 x 15 mm Integrity drug-eluting stent up to 14 atmospheres. Final angiography shows excellent resolution of 90% stenosis in the circumflex, 89% stenosis in the circumflex. No significant residual. The indwelling wire was placed across the diffusely diseased LAD. We went up and down this vessel with 3.0 x 12 mm balloon up to 14 atmospheres. This showed excellent resolution of multiple areas of 90% stenosis; however, one area of dissection. This was addressed with 3.0 x 18 Integrity nondrug-eluting stent up to 16 atmospheres. Final angiography shows excellent resolution of both severe diffuse stenosis 90% LAD as well as circumflex. JOE flow was 3 throughout the procedure. Heparin and Integrilin were used during the case. Sheath was closed with TR band. TRANSINT:[id number] Voice Confirmation ID: [id number] DOCUMENT ID: [id number] NGOZI LOCKHART MD at 0958 CC: [id number] DICTATION DATE: 11/27/20 1056 ESTIMATING ENGINEER: 11/27/20 1713 ADM IN [facility] [id number] [place] [address]
--- NOTE | 2020-11-29 12:38 | NUR ---
Nutrition reassessment: Pt now in ICU; evolving CVA with lethargy, breathing issues Continues NPO Labs reviewed Ht: 6'0" Wt: 163# Labs reviewed Estimated needs remain the same as initial assessment from 11/26/20 2015-5184 kcal, 90-105 g protein, 0661-5631 ml fluid or per MD Nutrition diagnosis: Inadequate oral intake R/T evolving stroke with AMS AEB pt continues NPO x 3 days. Goals: - Nutrition support will begin within 24 hours if pt remains NPO - Stable dry wt with increase to UBW/IBW - Meet at least 75% of estimated fluid needs Interventions: Recommend NGT placement and Nutrition support started; Osmolite 1.5 magaly started @ 25 ml/hr with gradual increase to goal rate of 55 ml/hr RDN will follow-up on pts progress toward nutrition goals: 12/02/20
[2020-11-30] VITALS (13 sets, daily range): BP systolic 133–192; BP diastolic 75–107
[2020-11-30 04:59] LABS: BASOPHILS 0.3 % (0-2); EOSINOPHILS 0.6 % (0-7); HEMATOCRIT 35.6 % (42.0-54.0); HEMOGLOBIN 11.8 g/dL (13.5-17.5); IMMATURE GRANULOCYTES 0.3 % (0-5); LYMPHOCYTE ABS# 0.38 10x3/uL (1.32-3.57); LYMPHOCYTES 5.5 % (15-50); MCH 29.1 pg (26.0-34.0); MCHC 33.1 g/dL (31.0-37.0); MCV 87.9 fL (80.0-100.0); MONOCYTES 11.3 % (2-11); NEUTROPHIL ABS# 5.69 10x3/uL (1.78-5.38); PLATELET COUNT 296 10x3/uL (130-400); RBC 4.05 10x6/uL (4.20-6.10); RDW 13.8 % (11.5-14.5); WBC 6.9 10x3/uL (4.8-10.8)
[2020-11-30 05:16] LABS: CALCIUM 8.4 mg/dL (8.5-10.1); CARBON DIOXIDE 19.9 mmol/L (21.0-32.0); CREATININE - SERUM 1.2 mg/dL (0.6-1.3); MAGNESIUM - SERUM 2.1 mg/dL (1.8-2.4); POTASSIUM - SERUM 3.9 mmol/L (3.5-5.1)
[2020-11-30 05:21] LABS: PHOSPHOROUS 2.1 mg/dL (2.5-4.9)
--- NOTE | 2020-11-30 06:01 | NUR ---
Shift summary: Patient talkative, speech slurred. Able to express needs. Follows commands appropriately. Makes small independent position change in bed, able to use right side. Small amount of blood with hemmorhoid, no BM.
--- NOTE | 2020-11-30 08:00 | NUR ---
NOTICED NO ANTICOAGULANTS FOR PT AT THIS TIME. CALLED AND SPOKE WITH CARDIOLOGY ABOUT THIS. DR. MEI STATES HE WANTS TO CHECK WITH NEUROLOGY ABOUT CONTINUATION OF ANTICOAGULANTS BEFORE HE DECIDES. SPOKE WITH DR. URIOSTEGUI. HE STATES OKAY TO CONTINUE ANY ANTICOAGULANTS EXCEPT HEPARIN/LOVENOX. 1000- SPOKE WITH SEEMA PEREZ AND RELAYED MESSAGE ABOUT THE ANTICOAGULANTS FROM DR. URIOSTEGUI. ORDERS RECIEVED TO DROP NG TUBE NEEDED AND START PO PLAVIX AND ASPIRIN. 1020- ATTEMPTED TO EVALUATE SWALLOWING ABILITY OF PT. ABLE TO TOLERATE SMALL AMOUNTS OF WATER. ORAL CARE PERFORMED. SORES FOUND ON TONGUE. WHEN ASKED IF HIS TONGUE HURT HE STATES "DOES MY TONGUE HURT? NO. DOES YOUR PUSSY HURT?" INSTRUCTED PATIENT THAT INNAPROPRIATE LANGUAGE WOULD NOT BE TOLERATED. ATTEMPTED APPLESAUCE IN SMALL AMOUNTS, PT WILL NOT SWALLOW THE APPLESAUCE WITHOUT BEING REMINDED SEVERAL TIMES AND WATER FOLLOWING IT. PT IS NOW SPEAKING CLEARLY AND AT TIMES YELLING OUT. NO SIGN OF ASPIRATION AT THIS TIME. WILL CONTINUE TO TRY SWALLOWING EXERISES THROUGHOUT THE DAY.
--- NOTE | 2020-11-30 12:14 | NUR ---
I have reviewed this patient and I concur with the Shift Assessment completed by the Licensed Practical Nurse today this shift.
--- NOTE | 2020-11-30 18:49 | NUR ---
SKIN TEAR TO LEFT ARM. DRESSING CHANGED, CDI. NOTICED CONDOM CATH CAME OFF. REPLACED. NO REDNESS OR IRRITATION NOTED AROUND CONDOM CATH. LINENS AND GOWN CHANGED. BED IN LOWEST POSITION. CALL LIGHT WITHIN REACH. BED RAILS UP X2
[2020-12-01] VITALS (17 sets, daily range): BP systolic 133–182; BP diastolic 75–96
[2020-12-01 04:55] LABS: BASOPHILS 0.3 % (0-2); EOSINOPHILS 0.7 % (0-7); HEMATOCRIT 35.9 % (42.0-54.0); HEMOGLOBIN 11.9 g/dL (13.5-17.5); IMMATURE GRANULOCYTES 0.3 % (0-5); LYMPHOCYTE ABS# 0.53 10x3/uL (1.32-3.57); LYMPHOCYTES 8.9 % (15-50); MCHC 33.1 g/dL (31.0-37.0); MCV 87.3 fL (80.0-100.0); MEAN PLATELET VOLUME 9.9 fL (7.4-10.4); MONOCYTES 9.8 % (2-11); NEUTROPHIL ABS# 4.75 10x3/uL (1.78-5.38); PLATELET COUNT 304 10x3/uL (130-400); RBC 4.11 10x6/uL (4.20-6.10); RDW 13.8 % (11.5-14.5); WBC 5.9 10x3/uL (4.8-10.8)
[2020-12-01 05:07] LABS: ALBUMIN 3.2 g/dL (3.4-5.0); ANION GAP 17.1 mmol/L (8-16); BILIRUBIN - TOTAL 0.62 mg/dL (0.2-1.3); CALCIUM 8.5 mg/dL (8.5-10.1); CARBON DIOXIDE 20.6 mmol/L (21.0-32.0); CREATININE - SERUM 1.2 mg/dL (0.6-1.3); POTASSIUM - SERUM 3.7 mmol/L (3.5-5.1); PROTEIN - SERUM 7.1 g/dL (6.4-8.2)
--- NOTE | 2020-12-01 10:10 | NUR ---
0700 REPORT RECIEVED AND CARE ASSUMED OF PATIENT.... SEE FLOW SHEET FOR SHIFT ASSESMENT FINDINGS.. 0900 COMPLETE CHG BED BATH GIVEN PIV SITES X 2 ON THE RIGHT DCd BOTH SITES ARE PINK AND DO NOT FLUSH THE PIV ON THE LEFT FA IS PATENT..NS FLUID BAG AND TUBING CHANGE IS DONE AND MOVED TO THAT SITE,, ORAL CARE GIVEN ... CONDOM CATH IS REMOVED AND PERICARE DONE.. NOTED THERE IS A SMALL BROKEN SKIN AREA IN BUTTOCK CRACK AND BUTT BALM APPLIED... NOTED REDNESS IN BOTH HEELS AND SCD REMOVED FOR INSPECTION .. THERE IS A BROKEN AREA OF SKIN ON BILATERAL SHINS MEPLEX DRESSINGS APPLIED AND SCDs PUT BACK ON .. BILATERAL HEELS ARE BLANCHING PINK HEEL PROTECTORS ON.... ADULT DIAPER PLACED ON PATIENT IN PLACE OF CONDIM CATH THAT DOES NOT STAY ON... TOTAL LINEN CHANGE DONE... 0945 RESTING QUIETLY AT THIS TIME... DR MEI IN TO SEE PATIENT.. UPDATE IS GIVEN .. OK THAT NTG IS NOT INFUSING..
--- NOTE | 2020-12-01 11:38 | NUR ---
3805 DR PERERA IN TO SEE PATIENT UPDATE IS GIVEN ...
--- NOTE | 2020-12-01 13:38 | NUR ---
1330 DR MORE IN TO SEE PATIENT... TRANSFER ORDER RECIEVED.. PATIENT IS WITHOUT CHANGES... WHEN HE IS STIMULATED HIS BP RISES 1345 ROOM 2108 FOR TRANSFER.. REPORT CALLED TO MARBELLA
--- NOTE | 2020-12-01 14:41 | NUR ---
1415 TRANSPORRTED VIA BED TO FLOOR AFTER DIAPER CHANGE DONE .. INCONTINENT OF URINE
--- NOTE | 2020-12-01 15:46 | NUR ---
PT ARIVED VIA BED TO ROOM FROM ICU. RESTING PEACEFULLY. EYES CLOSED, BREATHS EVEN, REGULAR AND UNLABORED. NO SIGNS OR SYMPTOMS OF ACUTE DISTRESS NOTED AT THIS TIME. CL IN REACH, SRX2, BED ALARM ON AND ACTIVE WNL.
--- NOTE | 2020-12-01 16:53 | NUR ---
PT EYES CLOSED, CONTINOUSLY MUMBLING TO HIMSELF OR LOUDLY SPEAKING SEEMINGLY RADNOM WORDS. WHEN ASKED WHAT HE NEEDS, ,PT DOES NOT PROVIDE DIRECTIVE. CL IN REACH, SRX2, BED ALARM ON AND ACTIVE WNL.
--- NOTE | 2020-12-01 18:08 | NUR ---
PT ALERT AND ORIETNED, CALLING OUT FOR ASSISTANCE. PROVIDED ORAL CARE, PT STATES HE FEEL VERY THIRSTY. PT CLEAN AND DRY AT THIS TIME. CL IN REACH, SRX2. BED ALARM ON AND ACTIVE.
[2020-12-02 04:00] VITALS: BP 202/110
[2020-12-02 06:09] LABS: BASOPHILS 0.5 % (0-2); EOSINOPHILS 0.8 % (0-7); HEMATOCRIT 36.1 % (42.0-54.0); IMMATURE GRANULOCYTES 0.5 % (0-5); LYMPHOCYTE ABS# 0.47 10x3/uL (1.32-3.57); LYMPHOCYTES 7.2 % (15-50); MCH 29.2 pg (26.0-34.0); MCHC 33.2 g/dL (31.0-37.0); MCV 87.8 fL (80.0-100.0); MEAN PLATELET VOLUME 10.4 fL (7.4-10.4); NEUTROPHIL ABS# 5.53 10x3/uL (1.78-5.38); PLATELET COUNT 320 10x3/uL (130-400); RBC 4.11 10x6/uL (4.20-6.10); RDW 13.8 % (11.5-14.5); WBC 6.6 10x3/uL (4.8-10.8)
[2020-12-02 06:27] LABS: CALC OSMOLALITY 296 mosm/kg (275-300); CALCIUM 8.5 mg/dL (8.5-10.1); CARBON DIOXIDE 21.5 mmol/L (21.0-32.0); CHLORIDE - SERUM 112 mmol/L (98-107); GLUCOSE 95 mg/dL (74-106); POTASSIUM - SERUM 3.4 mmol/L (3.5-5.1); SODIUM 146 mmol/L (136-145); UREA NITROGEN 30 mg/dL (7-18); eGFR NON AFRICAN AMERICAN 79 mL/min (90-120)
[2020-12-02 08:58] VITALS: BP 187/85
--- NOTE | 2020-12-02 09:27 | NUR ---
ORAL CARE, GILBERTO CARE, REPOSITIONED PATIENT.
--- NOTE | 2020-12-02 10:00 | NUR ---
NURSE TURNS AND CHANGES PATIENT. ORAL CARE.
--- NOTE | 2020-12-02 12:30 | NUR ---
REPOSITIONED PATIENT AND ORAL CARE
--- NOTE | 2020-12-02 13:12 | NUR ---
Nutrition Reassessment/Follow-up: NPO. Noted surgery consulted for PEG placement. Per nursing, pt c/o sore tongue. Wt: 151# (12/01); 163# (11/29) Labs noted: Na 146, K+ 4.6 Meds noted: Thiamine, Folate, Pepcid, NS @ 75, electrolyte protocol Est needs: 4507-1123 kcal/day (25-30 kcal/kg) 70-85 g protein/day (1-1.2 g/kg) 8950-4248 mL fluid/day (1 mL/kcal) or per MD -When PEG placed, rec Osmolite 1.5 @ goal rate of 55 mL/hr; provides 1980 kcal (97-115% est needs) & 83 g protein (98-119% est needs) daily. -RD will follow up within 2-3 days.
--- NOTE | 2020-12-02 14:20 | NUR ---
REPOSITIONED PATIENT, ORAL CARE, GILBERTO CARE
--- NOTE | 2020-12-02 14:47 | NUR ---
SPEECH RE EVALUATED PT AGAIN - AFTER HIS EVAL. PATIENT REMAINS NPO. DID NOT MANAGE TO SHOW IMPROVEMENT FROM SWALLOWING STUDY
[2020-12-02 15:53] VITALS: BP 191/86
--- NOTE | 2020-12-02 16:30 | NUR ---
ORAL CARE GILBERTO CARE AND REPOSITIONED
--- NOTE | 2020-12-02 17:36 | NUR ---
NURSE HAS CALLED NAVIN X2 TIMES TO LET HER KNOW THAT PATIENT HAS PULLED HIS PEG TUBE OUT
--- NOTE | 2020-12-02 18:04 | NUR ---
NURSE TALKS WITH NAVIN AT THIS TIME, NAVIN TELLS NURSE TO CONSULT WHOEVER ORDERED THE NG TUBE.
--- NOTE | 2020-12-02 18:39 | NUR ---
AFTER REVIEWING CHART, NURSE NOTICES THERE IS NO CHARTING ON WHO ORDERS NG TUBE OR WHO PLACED NG TUBE. WILL CONTINUE TO FIND OUT WHAT TO DO NEXT
--- NOTE | 2020-12-02 18:47 | NUR ---
NURSE CALLS NAVIN STEPHENSON AGAIN TO FIGURE OUT WHAT TO DO ABOUT NG TUBE DUE TO PATIENT BEING NPO
[2020-12-02 20:00] VITALS: BP 157/82
--- NOTE | 2020-12-02 20:10 | NUR ---
RECIEVED LAYING IN BED WITH EYES OPEN. WILL NOT ANSWER QUESTIONS. REPORTED HE COULD SPEAK. REMAINS NPO AND HAS SURGERY IN AM FOR PEG PLACEMENT. CALLED MEL RUIZ FOR ORDERS D/T LOPRESSOR DUE AT 2100. APRESOLINE HAS BEEN GIVEN LAST COUPLE OF DAYS. MEL RUIZ STATED " GO AHEAD AND GIVE HIM THE APRESOLIN. I THINK HE'LL BE OKAY TIL TOMORROW".
--- NOTE | 2020-12-02 23:35 | NUR ---
UNABLE TO FOLLOW DIRECTIONS. UNABLE TO USE INCENTIVE SPIROMETER.
[2020-12-03] VITALS (14 sets, daily range): BP systolic 98–194; BP diastolic 56–101
--- NOTE | 2020-12-03 01:01 | NUR ---
STARTED TALKING TO THIS NURSE WHEN CHANGED. ASKING FOR WATER. STATED HIS NAME, YEAR PLACE AND WHY HE WAS HERE. ASKED HIM IF THE STROKE ONLY LEFT HIS BODY IMPAIRED AND HE STATED "YES".
--- NOTE | 2020-12-03 01:41 | NUR ---
ABDOMEN IS FLAT AND HARD. UNABLE TO DETECT BOWEL SOUNDS. XRAY HERE AND COMPLETED THE STAT KUB.WILL REPORT RESULTS.
[2020-12-03 08:47] LABS: BASOPHILS 0.3 % (0-2); EOSINOPHILS 0.4 % (0-7); HEMOGLOBIN 12.5 g/dL (13.5-17.5); IMMATURE GRANULOCYTES 0.4 % (0-5); LYMPHOCYTES 5.6 % (15-50); MCH 28.9 pg (26.0-34.0); MCHC 33.8 g/dL (31.0-37.0); MCV 85.6 fL (80.0-100.0); MONOCYTES 8.5 % (2-11); NEUTROPHIL ABS# 6.09 10x3/uL (1.78-5.38); NEUTROPHILS 84.8 % (40-80); PLATELET COUNT 302 10x3/uL (130-400); RBC 4.32 10x6/uL (4.20-6.10); RDW 13.5 % (11.5-14.5); WBC 7.2 10x3/uL (4.8-10.8)
[2020-12-03 09:05] LABS: ALBUMIN 3.2 g/dL (3.4-5.0); ALKALINE PHOSPHATASE 93 U/L (30-120); ALT (SGPT) 29 U/L (10-68); BILIRUBIN - TOTAL 0.66 mg/dL (0.2-1.3); CALC OSMOLALITY 289 mosm/kg (275-300); CALCIUM 8.4 mg/dL (8.5-10.1); CARBON DIOXIDE 22.7 mmol/L (21.0-32.0); CHLORIDE - SERUM 109 mmol/L (98-107); GLUCOSE 96 mg/dL (74-106); POTASSIUM - SERUM 3.3 mmol/L (3.5-5.1); PROTEIN - SERUM 6.9 g/dL (6.4-8.2); SODIUM 144 mmol/L (136-145); eGFR NON AFRICAN AMERICAN 79 mL/min (90-120)
[2020-12-03 09:10] LABS: UREA NITROGEN 22 mg/dL (7-18)
--- NOTE | 2020-12-03 09:52 | NUR ---
REPOSITIONED PATIENT AND PREOPED PATIENT AT THIS TIME.
--- NOTE | 2020-12-03 13:44 | NUR ---
JUST RECEIVED PATIENT BACK FROM PEG TUBE PLACEMENT. PATIENT IS SLEEPING SOUNDLY, SNORING. VITALS WNL. PATIENT ON CONTINUOUS VITALS AFTER HIS PROCEDURE.
--- NOTE | 2020-12-03 15:15 | NUR ---
NURSE CALLS JENNIFER STEPHENSON AND LETS HIM KNOW THAT THIS PATIENT IS STILL NOT WAKING UP EVEN WITH STERNAL RUBS. PATIENT WILL GRIMMACE BUT WILL NOT OPEN EYES OR RESPOND TO QUESTIONS. JENNIFER STATES THAT LONG PATIENT'S VITALS ARE WNL THAT NURSE COULD JUST CONTINUE TO WATCH PATIENT.
--- NOTE | 2020-12-03 16:09 | NUR ---
SLEEPING SOUNDLY. NAD NOTED.
--- NOTE | 2020-12-03 19:30 | NUR ---
PT IN BED, EYES CLOSED, RESP EVEN AND UNLABORED, NO DISTRESS NOTED, CL IN REACH, SR UP X 2.
[2020-12-04 04:00] VITALS: BP 163/84
--- NOTE | 2020-12-04 05:45 | NUR ---
I have reviewed this patient and I concur with the Shift Assessment completed by the Licensed Practical Nurse today this shift.
[2020-12-04 06:22] LABS: BASOPHILS 0.2 % (0-2); EOSINOPHILS 0.3 % (0-7); HEMATOCRIT 33.2 % (42.0-54.0); HEMOGLOBIN 11.2 g/dL (13.5-17.5); IMMATURE GRANULOCYTES 0.5 % (0-5); LYMPHOCYTE ABS# 0.42 10x3/uL (1.32-3.57); LYMPHOCYTES 7.1 % (15-50); MCH 29.1 pg (26.0-34.0); MCHC 33.7 g/dL (31.0-37.0); MCV 86.2 fL (80.0-100.0); MEAN PLATELET VOLUME 10.2 fL (7.4-10.4); MONOCYTES 10.7 % (2-11); NEUTROPHIL ABS# 4.79 10x3/uL (1.78-5.38); NEUTROPHILS 81.2 % (40-80); PLATELET COUNT 300 10x3/uL (130-400); RBC 3.85 10x6/uL (4.20-6.10); RDW 13.6 % (11.5-14.5); WBC 5.9 10x3/uL (4.8-10.8)
--- NOTE | 2020-12-04 07:00 | NUR ---
PATIENT IS AWAKE THIS AM, CRYING. DOES NOT KNOW WHERE HE IS AT , BUT IS VERBAL. QUIETLY STILL. ASSESSMENTHAS BEEN COMPLETED. CALL LIGHT IN REACH
[2020-12-04 07:04] LABS: ALBUMIN 2.7 g/dL (3.4-5.0); ANION GAP 14.4 mmol/L (8-16); BILIRUBIN - TOTAL 0.58 mg/dL (0.2-1.3); CALCIUM 8.2 mg/dL (8.5-10.1); CARBON DIOXIDE 22.6 mmol/L (21.0-32.0); CREATININE - SERUM 1.1 mg/dL (0.6-1.3); MAGNESIUM - SERUM 2.1 mg/dL (1.8-2.4); PROTEIN - SERUM 6.5 g/dL (6.4-8.2)
--- NOTE | 2020-12-04 07:52 | NUR ---
NURSE CONFIRMS WITH PHARMACY THAT ALL MEDS ON PATIENT'S LIST ARE OKAY TO GIVE THRU A PEG TUBE
[2020-12-04 08:01] VITALS: BP 180/88
--- NOTE | 2020-12-04 10:00 | NUR ---
PATIENT GETS BED BATH AND LINEN CHANGE. REPOSITIONED. NAD NOTED.
[2020-12-04 11:17] VITALS: BP 165/84
--- NOTE | 2020-12-04 11:55 | NUR ---
NURSE TALKS WITH PATIENT'S FAMILY.
--- NOTE | 2020-12-04 12:19 | NUR ---
Nutrition Consult/Follow-up: POD 1 PEG placement. Received consult from surgery for TF. Diet: NPO No new wt; last wt: 151# (12/01) Labs noted: K+ 3.0, Ca 8.2, Alb 2.7 Meds noted: Thiamine, Folate, Pepcid, NS @ 50, electrolyte protocol -Start Osmolite 1.5 @ 20 mL/hr and increase by 10 mL/hr q 6 hrs to goal rate of 55 mL/hr + H2O flushes 25 mL q hr. -Need new wt. -RD follow-up: 12/05 Thanks for the consult!
--- NOTE | 2020-12-04 13:25 | NUR ---
REPOSITIONED, ORAL CARE, GILBERTO CARE
[2020-12-04 15:24] VITALS: BP 120/76
[2020-12-04 19:46] VITALS: BP 194/92
--- NOTE | 2020-12-04 19:47 | NUR ---
RECIEVED LAYING IN BED WITH HOB ELEVATED. AROUSES TO VERBAL STIMULI. NO S/S OF DISTRESS OBSERVED.
--- NOTE | 2020-12-04 20:00 | NUR ---
PEG TUBE CHECKED FOR PATENCY. NOTHING ASPIRATED. RUNNING AT 20CC/HR. FOUND TUBING UNPLUGGED AND DRIPPING ON THE FLOOR. REPLACED AND RUNNING AT THIS TIME.
[2020-12-04 23:36] VITALS: BP 168/82
--- NOTE | 2020-12-05 03:30 | NUR ---
TUBE FEEDING AT 30CC/HR AT THIS TIME.
[2020-12-05 05:12] LABS: BASOPHILS 0.4 % (0-2); EOSINOPHILS 2.2 % (0-7); HEMATOCRIT 33.9 % (42.0-54.0); HEMOGLOBIN 11.4 g/dL (13.5-17.5); IMMATURE GRANULOCYTES 0.4 % (0-5); LYMPHOCYTE ABS# 0.37 10x3/uL (1.32-3.57); LYMPHOCYTES 7.4 % (15-50); MCH 28.8 pg (26.0-34.0); MCHC 33.6 g/dL (31.0-37.0); MCV 85.6 fL (80.0-100.0); MEAN PLATELET VOLUME 10.2 fL (7.4-10.4); MONOCYTES 11.8 % (2-11); NEUTROPHILS 77.8 % (40-80); PLATELET COUNT 307 10x3/uL (130-400); RBC 3.96 10x6/uL (4.20-6.10); RDW 13.5 % (11.5-14.5)
[2020-12-05 05:35] LABS: ALBUMIN 2.7 g/dL (3.4-5.0); ALKALINE PHOSPHATASE 79 U/L (30-120); ALT (SGPT) 19 U/L (10-68); BILIRUBIN - TOTAL 0.43 mg/dL (0.2-1.3); CALC OSMOLALITY 289 mosm/kg (275-300); CARBON DIOXIDE 23.5 mmol/L (21.0-32.0); CHLORIDE - SERUM 109 mmol/L (98-107); POTASSIUM - SERUM 3.5 mmol/L (3.5-5.1); PROTEIN - SERUM 6.5 g/dL (6.4-8.2); SODIUM 142 mmol/L (136-145); UREA NITROGEN 26 mg/dL (7-18); eGFR NON AFRICAN AMERICAN 79 mL/min (90-120)
[2020-12-05 05:36] LABS: GLUCOSE 134 mg/dL (74-106)
[2020-12-05 08:25] VITALS: BP 184/92
--- NOTE | 2020-12-05 09:57 | NUR ---
PT TURNED AND CLEANED FROM INCONTINENT VOID. POSITIONED FOR COMFORT. HEELS ELEVATED. SMALL AMT BLEEDING FROM HEMMORHOIDS. LEFT SIDE AFFECTED FROM PRIOR CVA. HE GETS AGITATED WHEN UNABLE TO UNDERSTAND HIM.
[2020-12-05 12:23] VITALS: BP 203/108
--- NOTE | 2020-12-05 12:25 | NUR ---
Nutrition Follow-up: Nursing reports pt tolerating TF @ 30 mL/hr this AM with plans to increase to 40 mL/hr soon. Awaiting placement. Diet: Osmolite 1.5 - goal rate 55 mL/hr + H2O flushes 25 mL q hr No new wt; last wt: 151# (12/01) Labs noted: Glu 134, Ca 8.0, Alb 2.7 Meds noted: Thiamine, Folate, Pepcid, NS @ 50, electrolyte protocol -Increase TF to goal rate as tolerated. -Need new wt. -RD follow-up: 12/06
--- NOTE | 2020-12-05 15:16 | OP ---
PATIENT NAME: ROSALIA NEWELL MEDICAL RECORD: [id number] :54 LOCATION:D.M2 D.2108 ADMISSION DATE:11/25/20 SURGEON: AKBAR WHITTEN MD DATE OF OPERATION: 12/03/2020 PREOPERATIVE DIAGNOSES: 1. Cerebrovascular accident. 2. Failed swallowing study. 3. Dysphagia. 4. Acute malnutrition. POSTOPERATIVE DIAGNOSES: 1. Cerebrovascular accident. 2. Failed swallowing study. 3. Dysphagia. 4. Acute malnutrition. 5. Moderate gastritis involving the fundus and antrum with fissuring, ulcers and erosions. 6. Normal-appearing duodenum. 7. Normal appearing esophagus. PROCEDURE: 1. Esophagogastroduodenoscopy with antral biopsies to rule out Helicobacter pylori. 2. Placement of 20-Tajik percutaneous endoscopic gastrostomy tube. SURGEON: Akbar Whitten MD SENIOR SEARCH MARKETING ANALYST: None. BLOOD LOSS: Minimal. ANESTHESIA: Local with IV sedation. COMPLICATIONS: None. The risks, possible complications, and alternatives of the procedure were explained to the patient's family. They elected to proceed. ENDOSCOPIC COURSE: The patient was conveyed to the endoscopy suite electively on 12/03/2020. General anesthesia was induced by the anesthesia staff. The abdomen was sterilely prepped and draped. A bite block was inserted. A gastroscope was inserted through the bite block into the oropharynx. The hypopharynx was full of thick secretions, which I aspirated. I then intubated the esophagus easily as well as the stomach and duodenum. Upon withdrawal, retroflexed and angulus views were obtained. Antral biopsies were obtained. I then transilluminated the abdominal wall. We found an area once we indented the anterior abdominal wall in the epigastrium that was suitable for placement of a gastrostomy tube. This area was infiltrated with a local anesthetic. A skin incision was accomplished. Through the skin incision, I passed the Angiocath. The Angiocath was used to puncture the stomach on the first try. Through the Angiocath, I advanced a wire. This was grasped with an endoscopic snare. The wire and snare were then brought out through the mouth. The wire was attached to a pull-type gastrostomy tube, which was then pulled into place. OPERATIVE REPORT [id number] ROSALIA NEWELL I re-endoscoped the patient's esophagus and stomach. There has been no false passage or perforation. The gastroscope was then withdrawn under direct vision. Hub and flange attachments were applied to the gastrostomy tube. A sterile dressing was then applied. The patient was then conveyed back to his room. We can begin using the gastrostomy tube for feedings tomorrow. TRANSINT:[id number] Voice Confirmation ID: [id number] DOCUMENT ID: [id number] AKBAR WHITTEN MD at 1516 CC: [id number] DICTATION DATE: 12/03/20 185 JUICE BAR TEAM MEMBER: 12/04/20 0304 ADM IN [facility] [address] [id number]
[2020-12-05 17:04] VITALS: BP 152/86
[2020-12-05 20:13] VITALS: BP 160/91
[2020-12-06 01:11] VITALS: BP 142/72
--- NOTE | 2020-12-06 02:18 | NUR ---
PT COMPLAINS OF DISCOMFORT. UNABLE TO SPECIFY LOCATION. PT A/C. VSS. BED LOW CALL LIGHT WITHIN REACH. WILL GIVE PRN PAIN MED AND CONTINUE TO MONITOR.
--- NOTE | 2020-12-06 03:06 | NUR ---
REASSESED PT FOR PAIN . PT MORE COMFORTABLE. REPOSITIONED TO LEFT SIDE PROVIDED ORAL CSRE. MOUTH VERY DRY. BED LOW ALARM IN PLACE CALL LIGHT WITHIN REACH. WILL CONTINUE TO MONITOR.
[2020-12-06 04:59] VITALS: BP 133/72
--- NOTE | 2020-12-06 06:15 | MORECARE ---
CASE MANAGEMENT DISCHARGE SUMMARY PATIENT: ROSALIA NEWELL UNIT: [id number] ADM DATE: 11/25/20 AGE: 70 : 52 SEX: M ROOM/BED: D.2108 AUTHOR: MARGY,DOC PHYSICIAN: REFERRING PHYSICIAN: YU MENDOZA MD DATE OF SERVICE: 12/06/20 Case Management Discharge Planning Summary DCP REVIEW SUMMARY ANTICIPATED D/C DATE: EXPECTED LOS : CASE STATUS: DCP Initiated INITIAL REVIEW: 11/25/2020 INITIAL REVIEWER: Georgette Escamilla FINAL DISCHARGE DISPOSITION: : FINAL REVIEWER: FINAL REVIEW DATE: DCP Focus Questions & Answers DCP Screen QUESTION: ANSWER High Risk Factors: : Hosp related to CHF, COPD, DM, End Stage Ds, CVA, CA DCP Evaluation QUESTION: ANSWER Patient's ability to cope with chronic illness : d. No chronic illness Would patient like to participate in any Care Coordination programs (if applicable): : Not applicable Mental health screen: : No mental health history DCP Re-evaluation QUESTION: ANSWER Would patient like to participate in any Care Coordination programs (if applicable): : Not applicable PATIENT: ROSALIA NEWELL ENCOUNTER: [id number] MEDICAL RECORD#: [id number] ADMISSION DATE: 11/25/2020 DISCHARGE DATE: ATTENDING MD: YU PATEL : AGE: 70 MARITAL STATUS: S DC PLAN ID: [id number] FACILITY: PRINTED ON: 12/06/20 6:15 CT All edits/amendments must be made on the electronic document DICTATION DATE: 12/06/20613 INSULATION MACHINE OPERATOR: DM 12/06/20613 RPT#: [id number] DC DATE: STATUS: ADM IN [address] [place] [address] END OF REPORT
--- NOTE | 2020-12-06 06:25 | MORECARE ---
CASE MANAGEMENT DISCHARGE SUMMARY PATIENT: ROSALIA NEWELL UNIT: [id number] ADM DATE: 11/25/20 AGE: 70 : 52 SEX: M ROOM/BED: D.2108 AUTHOR: MARGYDOC PHYSICIAN: REFERRING PHYSICIAN: YU MENDOZA MD DATE OF SERVICE: 12/06/20 Case Management Discharge Planning Summary DCP REVIEW SUMMARY ANTICIPATED D/C DATE: EXPECTED LOS : CASE STATUS: DCP Initiated INITIAL REVIEW: 11/25/2020 INITIAL REVIEWER: Georgette Escamilla FINAL DISCHARGE DISPOSITION: : FINAL REVIEWER: FINAL REVIEW DATE: DCP Focus Questions & Answers DCP Screen QUESTION: ANSWER High Risk Factors: : Hosp related to CHF, COPD, DM, End Stage Ds, CVA, CA DCP Evaluation QUESTION: ANSWER Family / Caregiver's ability to cope with chronic illness: : b. Minimal (occasionally not dependable to meet pt's. needs, can meet pt's. basic ADL's) Patient and/or caregiver agree upon recommended discharge plan? : Yes Patient gives permission to discuss discharge plans with: (name, relationship and number) : MARCO CARMONADDES [phone] LUIS TAM [phone] Patient's ability to cope with chronic illness : d. No chronic illness Patient's current cognitive status: : Confused Family / Caregiver's ability to cope with chronic illness: : b. Minimal (occasionally not dependable to meet pt's. needs, can meet pt's. basic ADL's) Does the patient have the ability to pay for or attain post discharge needs / services? : Yes Alternate discharge plan (if recommended plan not agreed upon by patient and/or caregiver): : SNF -PLACEMENT Physical Status: : Independent with ADL's Functional screen assessment: : Noticeable poor ADL management Living Arrangements: : Home Alone with Support Is there a likelihood that the patient will require additional services to return to the preadmission environment? : Yes Patient with capacity for self-care or can be cared for in same environment as prior to hospitalization? : No Results of this evaluation have been discussed with: : Family Baseline cognitive status: : *Oriented to person, place, situation, time and present Physical environment modification needed / anticipated for discharge: : Yes Planned post hospital services available for patient? : Yes Planned post hospital services covered by insurance plan? : Yes Does Patient have transportation to get home and to follow-up medical appointments when discharged from the hospital? : Yes Would patient like to participate in any Care Coordination programs (if applicable): : Not applicable Does the patient have electricity at home? : Yes Does the patient have running water in their house? : Yes Mental health screen: : No mental health history Resources / Services in place: : None DCP Re-evaluation QUESTION: ANSWER Would patient like to participate in any Care Coordination programs (if applicable): : Not applicable PATIENT: ROSALIA NEWELL ENCOUNTER: [id number] MEDICAL RECORD#: [id number] ADMISSION DATE: 11/25/2020 DISCHARGE DATE: ATTENDING MD: YU PATEL : AGE: 70 MARITAL STATUS: S DC PLAN ID: [id number] FACILITY: [facility] PRINTED ON: 12/06/20 6:25 CT All edits/amendments must be made on the electronic document DICTATION DATE: 12/06/20624 DUMP MOTOR OPERATOR: CHAN 12/06/20624 RPT#: [id number] DC DATE: STATUS: ADM IN [facility] [address] [place] [address] END OF REPORT
--- NOTE | 2020-12-06 06:36 | MORECARE ---
CASE MANAGEMENT DISCHARGE SUMMARY PATIENT: ROSALIA NEWELL UNIT: [id number] ADM DATE: 11/25/20 AGE: 70 : 52 SEX: M ROOM/BED: D.2108 AUTHOR: MARGY,DOC PHYSICIAN: REFERRING PHYSICIAN: YU MENDOZA MD DATE OF SERVICE: 12/06/20 Case Management Discharge Planning Summary COMMENTS ENTERED DATE: 12/06/20 6:20 CT COMMENT TYPE: Discharge Planning REVIEWER: Georgette Escamilla LATE ENTRY 12/04/20 CM spoke with patient's sister Marco Griffiths [phone] to complete initial dc planning assessment. Patient lives at home alone.. Patient is independent. At discharge patient will require placement to a SNF. CM discussed availability of home health, rehab services, and medical equipment. CM spoke to Marco about SNF and she was going to look them up on website and speak with siblings and call CM back with [facility], CM will continue to follow and will assist as needed with dc plans/needs. DCP REVIEW SUMMARY ANTICIPATED D/C DATE: EXPECTED LOS : CASE STATUS: DCP Initiated INITIAL REVIEW: 11/25/2020 INITIAL REVIEWER: Georgette Escamilla FINAL DISCHARGE DISPOSITION: : FINAL REVIEWER: FINAL REVIEW DATE: DCP Focus Questions & Answers DCP Screen QUESTION: ANSWER High Risk Factors: : Hosp related to CHF, COPD, DM, End Stage Ds, CVA, CA DCP Evaluation QUESTION: ANSWER Patient and/or caregiver agree upon recommended discharge plan? : Yes Patient's current cognitive status: : Confused Patient's ability to cope with chronic illness : d. No chronic illness Patient gives permission to discuss discharge plans with: (name, relationship and number) : MARCO GRIFFITHS [phone] LUISEugene TAM [phone] Family / Caregiver's ability to cope with chronic illness: : b. Minimal (occasionally not dependable to meet pt's. needs, can meet pt's. basic ADL's) Alternate discharge plan (if recommended plan not agreed upon by patient and/or caregiver): : SNF -PLACEMENT Does the patient have the ability to pay for or attain post discharge needs / services? : Yes Functional screen assessment: : Noticeable poor ADL management Family / Caregiver's ability to cope with chronic illness: : b. Minimal (occasionally not dependable to meet pt's. needs, can meet pt's. basic ADL's) Physical Status: : Independent with ADL's Is there a likelihood that the patient will require additional services to return to the preadmission environment? : Yes Living Arrangements: : Home Alone with Support Results of this evaluation have been discussed with: : Family Patient with capacity for self-care or can be cared for in same environment as prior to hospitalization? : No Baseline cognitive status: : *Oriented to person, place, situation, time and present Physical environment modification needed / anticipated for discharge: : Yes Planned post hospital services available for patient? : Yes Planned post hospital services covered by insurance plan? : Yes Does Patient have transportation to get home and to follow-up medical appointments when discharged from the hospital? : Yes Would patient like to participate in any Care Coordination programs (if applicable): : Not applicable Does the patient have electricity at home? : Yes Does the patient have running water in their house? : Yes Mental health screen: : No mental health history Resources / Services in place: : None DCP Re-evaluation QUESTION: ANSWER Would patient like to participate in any Care Coordination programs (if applicable): : Not applicable PATIENT: ROSALIA NEWELL ENCOUNTER: [id number] MEDICAL RECORD#: [id number] ADMISSION DATE: 11/25/2020 DISCHARGE DATE: ATTENDING MD: YU PATEL : AGE: 70 MARITAL STATUS: S DC PLAN ID: [id number] FACILITY: [facility] PRINTED ON: 12/06/20 6:36 CT All edits/amendments must be made on the electronic document DICTATION DATE: 12/06/20635 COLLABORATIVE PHYSICIAN: CHAN 12/06/2036 RPT#: [id number] DC DATE: STATUS: ADM IN [facility] [address] [place] [address] END OF REPORT
[2020-12-06 06:37] LABS: ALBUMIN 2.6 g/dL (3.4-5.0); ALKALINE PHOSPHATASE 81 U/L (30-120); BILIRUBIN - TOTAL 0.38 mg/dL (0.2-1.3); CALC OSMOLALITY 283 mosm/kg (275-300); CARBON DIOXIDE 25.3 mmol/L (21.0-32.0); CHLORIDE - SERUM 107 mmol/L (98-107); CREATININE - SERUM 0.9 mg/dL (0.6-1.3); GLUCOSE 134 mg/dL (74-106); MAGNESIUM - SERUM 1.8 mg/dL (1.8-2.4); POTASSIUM - SERUM 3.4 mmol/L (3.5-5.1); PROTEIN - SERUM 6.6 g/dL (6.4-8.2); SODIUM 139 mmol/L (136-145); UREA NITROGEN 23 mg/dL (7-18); eGFR NON AFRICAN AMERICAN 89 mL/min (90-120)
--- NOTE | 2020-12-06 06:46 | MORECARE ---
CASE MANAGEMENT DISCHARGE SUMMARY PATIENT: ROSALIA NEWELL UNIT: [id number] ADM DATE: 11/25/20 AGE: 70 : 52 SEX: M ROOM/BED: D.2108 AUTHOR: MARGY,DOC PHYSICIAN: REFERRING PHYSICIAN: YU MENDOZA MD DATE OF SERVICE: 12/06/20 Case Management Discharge Planning Summary COMMENTS ENTERED DATE: 12/06/20 6:31 CT COMMENT TYPE: Discharge Planning REVIEWER: Georgette Escamilla Late Entry 12-05-20 CM received a message Marco patient's sister of SNF [facility] she requested [facility] [phone] fax [phone] this facility in [place]. CM will send a referral. and follow up. ENTERED DATE: 12/06/20 6:20 CT COMMENT TYPE: Discharge Planning REVIEWER: Georgette Escamilla LATE ENTRY 12/04/20 CM spoke with patient's sister Marco Griffiths [phone] to complete initial dc planning assessment. Patient lives at home alone.. Patient is independent. At discharge patient will require placement to a SNF. CM discussed availability of home health, rehab services, and medical equipment. CM spoke to Marco about SNF and she was going to look them up on website and speak with siblings and call CM back with VL[facility], CM will continue to follow and will assist as needed with dc plans/needs. DCP REVIEW SUMMARY ANTICIPATED D/C DATE: EXPECTED LOS : CASE STATUS: DCP Initiated INITIAL REVIEW: 11/25/2020 INITIAL REVIEWER: Georgette Escamilla FINAL DISCHARGE DISPOSITION: : FINAL REVIEWER: FINAL REVIEW DATE: DCP Focus Questions & Answers DCP Screen QUESTION: ANSWER High Risk Factors: : Hosp related to CHF, COPD, DM, End Stage Ds, CVA, CA DCP Evaluation QUESTION: ANSWER Family / Caregiver's ability to cope with chronic illness: : b. Minimal (occasionally not dependable to meet pt's. needs, can meet pt's. basic ADL's) Patient gives permission to discuss discharge plans with: (name, relationship and number) : MARCO GRIFFITHS [phone] LUIS TAM [phone] Patient's ability to cope with chronic illness : d. No chronic illness Patient's current cognitive status: : Confused Patient and/or caregiver agree upon recommended discharge plan? : Yes Physical Status: : Independent with ADL's Family / Caregiver's ability to cope with chronic illness: : b. Minimal (occasionally not dependable to meet pt's. needs, can meet pt's. basic ADL's) Functional screen assessment: : Noticeable poor ADL management Does the patient have the ability to pay for or attain post discharge needs / services? : Yes Alternate discharge plan (if recommended plan not agreed upon by patient and/or caregiver): : SNF -PLACEMENT Living Arrangements: : Home Alone with Support Is there a likelihood that the patient will require additional services to return to the preadmission environment? : Yes Baseline cognitive status: : *Oriented to person, place, situation, time and present Patient with capacity for self-care or can be cared for in same environment as prior to hospitalization? : No Results of this evaluation have been discussed with: : Family Physical environment modification needed / anticipated for discharge: : Yes Planned post hospital services available for patient? : Yes Does Patient have transportation to get home and to follow-up medical appointments when discharged from the hospital? : Yes Planned post hospital services covered by insurance plan? : Yes Would patient like to participate in any Care Coordination programs (if applicable): : Not applicable Does the patient have electricity at home? : Yes Does the patient have running water in their house? : Yes Mental health screen: : No mental health history Resources / Services in place: : None DCP Re-evaluation QUESTION: ANSWER Would patient like to participate in any Care Coordination programs (if applicable): : Not applicable PATIENT: ROSALIA NEWELL ENCOUNTER: [id number] MEDICAL RECORD#: [id number] ADMISSION DATE: 11/25/2020 DISCHARGE DATE: ATTENDING MD: YU PATEL : AGE: 70 MARITAL STATUS: S DC PLAN ID: [id number] FACILITY: [facility] PRINTED ON: 12/06/20 6:46 CT All edits/amendments must be made on the electronic document DICTATION DATE: 12/06/20645 METAL TRIM ERECTOR: CHAN 12/06/20645 RPT#: [id number] DC DATE: STATUS: ADM IN [facility] [address] [place] [address] END OF REPORT
[2020-12-06 06:53] LABS: ALT (SGPT) 24 U/L (10-68); BASOPHILS 0.4 % (0-2); EOSINOPHILS 1.6 % (0-7); HEMOGLOBIN 11.9 g/dL (13.5-17.5); IMMATURE GRANULOCYTES 0.4 % (0-5); LYMPHOCYTE ABS# 0.57 10x3/uL (1.32-3.57); LYMPHOCYTES 11.6 % (15-50); MCH 28.6 pg (26.0-34.0); MCV 84.1 fL (80.0-100.0); MEAN PLATELET VOLUME 10.5 fL (7.4-10.4); MONOCYTES 12.6 % (2-11); NEUTROPHILS 73.4 % (40-80); PLATELET COUNT 333 10x3/uL (130-400); RBC 4.16 10x6/uL (4.20-6.10); RDW 13.5 % (11.5-14.5); WBC 4.9 10x3/uL (4.8-10.8)
--- NOTE | 2020-12-06 07:44 | NUR ---
PT RECEIVED SLEEPING IN BED. WET FROM INCONTINENCE, CLEANED AND LINEN CHANGE. MEDS GIVEN PER PEG. POSITIONED FOR COMFORT.
[2020-12-06 08:29] VITALS: BP 139/78
--- NOTE | 2020-12-06 09:34 | MORECARE ---
CASE MANAGEMENT DISCHARGE SUMMARY PATIENT: ROSALIA NEWELL UNIT: [id number] ADM DATE: 11/25/20 AGE: 70 : 52 SEX: M ROOM/BED: D.2108 AUTHOR: MARGY,DOC PHYSICIAN: REFERRING PHYSICIAN: YU MENDOZA MD DATE OF SERVICE: 12/06/20 Case Management Discharge Planning Summary COMMENTS ENTERED DATE: 12/06/20 6:31 CT COMMENT TYPE: Discharge Planning REVIEWER: Georgette Escamilla Late Entry 12-05-20 CM received a message Marco patient's sister of SNF [facility] she requested [facility] [phone] fax [phone] this facility in [place]. CM will send a referral. and follow up. ENTERED DATE: 12/06/20 6:20 CT COMMENT TYPE: Discharge Planning REVIEWER: Georgette Escamilla LATE ENTRY 12/04/20 CM spoke with patient's sister Marco Griffiths [phone] to complete initial dc planning assessment. Patient lives at home alone.. Patient is independent. At discharge patient will require placement to a SNF. CM discussed availability of home health, rehab services, and medical equipment. CM spoke to Marco about SNF and she was going to look them up on website and speak with siblings and call CM back with VLADIMIR, CM will continue to follow and will assist as needed with dc plans/needs. DCP REVIEW SUMMARY ANTICIPATED D/C DATE: EXPECTED LOS : CASE STATUS: DCP Initiated INITIAL REVIEW: 11/25/2020 INITIAL REVIEWER: Georgette Escamilla FINAL DISCHARGE DISPOSITION: : FINAL REVIEWER: FINAL REVIEW DATE: DCP Focus Questions & Answers DCP Screen QUESTION: ANSWER High Risk Factors: : Hosp related to CHF, COPD, DM, End Stage Ds, CVA, CA DCP Evaluation QUESTION: ANSWER Patient and/or caregiver agree upon recommended discharge plan? : Yes Patient's current cognitive status: : Confused Patient's ability to cope with chronic illness : d. No chronic illness Patient gives permission to discuss discharge plans with: (name, relationship and number) : MARCO GRIFFITHS [phone] LUIS TAM [phone] Family / Caregiver's ability to cope with chronic illness: : b. Minimal (occasionally not dependable to meet pt's. needs, can meet pt's. basic ADL's) Alternate discharge plan (if recommended plan not agreed upon by patient and/or caregiver): : SNF -PLACEMENT Does the patient have the ability to pay for or attain post discharge needs / services? : Yes Functional screen assessment: : Noticeable poor ADL management Family / Caregiver's ability to cope with chronic illness: : b. Minimal (occasionally not dependable to meet pt's. needs, can meet pt's. basic ADL's) Physical Status: : Independent with ADL's Is there a likelihood that the patient will require additional services to return to the preadmission environment? : Yes Living Arrangements: : Home Alone with Support Results of this evaluation have been discussed with: : Family Patient with capacity for self-care or can be cared for in same environment as prior to hospitalization? : No Baseline cognitive status: : *Oriented to person, place, situation, time and present Physical environment modification needed / anticipated for discharge: : Yes Planned post hospital services available for patient? : Yes Planned post hospital services covered by insurance plan? : Yes Does Patient have transportation to get home and to follow-up medical appointments when discharged from the hospital? : Yes Would patient like to participate in any Care Coordination programs (if applicable): : Not applicable Does the patient have electricity at home? : Yes Does the patient have running water in their house? : Yes Mental health screen: : No mental health history Resources / Services in place: : None DCP Re-evaluation QUESTION: ANSWER Would patient like to participate in any Care Coordination programs (if applicable): : Not applicable PATIENT: ROSALIA NEWELL ENCOUNTER: [id number] MEDICAL RECORD#: [id number] ADMISSION DATE: 11/25/2020 DISCHARGE DATE: ATTENDING MD: YU PATEL : AGE: 70 MARITAL STATUS: S DC PLAN ID: [id number] FACILITY: [facility] PRINTED ON: 12/06/20 9:34 CT All edits/amendments must be made on the electronic document DICTATION DATE: 12/06/20933 RETAIL ANALYTICS MANAGER: CHAN 12/06/20933 RPT#: [id number] DC DATE: STATUS: ADM IN [facility] [address] [place] [address] END OF REPORT
--- NOTE | 2020-12-06 09:47 | MORECARE ---
CASE MANAGEMENT DISCHARGE SUMMARY PATIENT: ROSALIA NEWELL UNIT: [id number] ADM DATE: 11/25/20 AGE: 70 : 52 SEX: M ROOM/BED: D.2108 AUTHOR: MARGY,DOC PHYSICIAN: REFERRING PHYSICIAN: YU MENDOZA MD DATE OF SERVICE: 12/06/20 Case Management Discharge Planning Summary COMMENTS ENTERED DATE: 12/06/20 9:30 CT COMMENT TYPE: Discharge Planning REVIEWER: Josiane Lopez CM called [facility] in [place] and spoke with Laura. She states she will tell Arleth and provide her my number. CM will continue to follow and assist with discharge planning/needs. ENTERED DATE: 12/06/20 6:31 CT COMMENT TYPE: Discharge Planning REVIEWER: Georgette Escamilla Late Entry 12-05-20 CM received a message Marco patient's sister of SNF [facility] she requested [facility] [phone] fax [phone] this facility in [place]. CM will send a referral. and follow up. ENTERED DATE: 12/06/20 6:20 CT COMMENT TYPE: Discharge Planning REVIEWER: Georgette Escamilla LATE ENTRY 12/04/20 CM spoke with patient's sister Marco Griffiths [phone] to complete initial dc planning assessment. Patient lives at home alone.. Patient is independent. At discharge patient will require placement to a SNF. CM discussed availability of home health, rehab services, and medical equipment. CM spoke to Marco about SNF and she was going to look them up on website and speak with siblings and call CM back with VLADIMIR, CM will continue to follow and will assist as needed with dc plans/needs. DCP REVIEW SUMMARY ANTICIPATED D/C DATE: EXPECTED LOS : CASE STATUS: DCP Initiated INITIAL REVIEW: 11/25/2020 INITIAL REVIEWER: Georgette Escamilla FINAL DISCHARGE DISPOSITION: : FINAL REVIEWER: FINAL REVIEW DATE: DCP Focus Questions & Answers DCP Screen QUESTION: ANSWER High Risk Factors: : Hosp related to CHF, COPD, DM, End Stage Ds, CVA, CA DCP Evaluation QUESTION: ANSWER Patient and/or caregiver agree upon recommended discharge plan? : Yes Patient's current cognitive status: : Confused Patient's ability to cope with chronic illness : d. No chronic illness Patient gives permission to discuss discharge plans with: (name, relationship and number) : MARCO GRIFFITHS [phone] LUIS TAM [phone] Family / Caregiver's ability to cope with chronic illness: : b. Minimal (occasionally not dependable to meet pt's. needs, can meet pt's. basic ADL's) Alternate discharge plan (if recommended plan not agreed upon by patient and/or caregiver): : SNF -PLACEMENT Does the patient have the ability to pay for or attain post discharge needs / services? : Yes Functional screen assessment: : Noticeable poor ADL management Family / Caregiver's ability to cope with chronic illness: : b. Minimal (occasionally not dependable to meet pt's. needs, can meet pt's. basic ADL's) Physical Status: : Independent with ADL's Is there a likelihood that the patient will require additional services to return to the preadmission environment? : Yes Living Arrangements: : Home Alone with Support Results of this evaluation have been discussed with: : Family Patient with capacity for self-care or can be cared for in same environment as prior to hospitalization? : No Baseline cognitive status: : *Oriented to person, place, situation, time and present Physical environment modification needed / anticipated for discharge: : Yes Planned post hospital services available for patient? : Yes Planned post hospital services covered by insurance plan? : Yes Does Patient have transportation to get home and to follow-up medical appointments when discharged from the hospital? : Yes Would patient like to participate in any Care Coordination programs (if applicable): : Not applicable Does the patient have electricity at home? : Yes Does the patient have running water in their house? : Yes Mental health screen: : No mental health history Resources / Services in place: : None DCP Re-evaluation QUESTION: ANSWER Would patient like to participate in any Care Coordination programs (if applicable): : Not applicable PATIENT: ROSALIA NEWELL ENCOUNTER: [id number] MEDICAL RECORD#: [id number] ADMISSION DATE: 11/25/2020 DISCHARGE DATE: ATTENDING MD: YU PATEL : AGE: 70 MARITAL STATUS: S DC PLAN ID: [id number] FACILITY: [facility] PRINTED ON: 12/06/20 9:47 CT All edits/amendments must be made on the electronic document DICTATION DATE: 12/06/20946 GROUP SUPERVISOR YARD: CHAN 12/06/20946 RPT#: [id number] DC DATE: STATUS: ADM IN [facility] [address] [place] [address] END OF REPORT
--- NOTE | 2020-12-06 09:59 | MORECARE ---
CASE MANAGEMENT DISCHARGE SUMMARY PATIENT: ROSALIA NEWELL UNIT: [id number] ADM DATE: 11/25/20 AGE: 70 : 52 SEX: M ROOM/BED: D.2108 AUTHOR: MARGY,DOC PHYSICIAN: REFERRING PHYSICIAN: YU MENDOZA MD DATE OF SERVICE: 12/06/20 Case Management Discharge Planning Summary COMMENTS ENTERED DATE: 12/06/20 9:57 CT COMMENT TYPE: Discharge Planning REVIEWER: Josiane Lopez CM spoke with Arleth with [facility] in [place] and I faxed clinical per request. CM will continue to follow and assist with discharge planning/needs. ENTERED DATE: 12/06/20 9:30 CT COMMENT TYPE: Discharge Planning REVIEWER: Josiane Lopez CM called [facility] in [place] and spoke with Laura. She states she will tell Arleth and provide her my number. CM will continue to follow and assist with discharge planning/needs. ENTERED DATE: 12/06/20 6:31 CT COMMENT TYPE: Discharge Planning REVIEWER: Georgette Escamilla Late Entry 12-05-20 CM received a message Marco patient's sister of [facility] she requested [facility] [phone] fax [phone] this facility in [place]. CM will send a referral. and follow up. ENTERED DATE: 12/06/20 6:20 CT COMMENT TYPE: Discharge Planning REVIEWER: Georgette Escamilla LATE ENTRY 12/04/20 CM spoke with patient's sister Marco Griffiths [phone] to complete initial dc planning assessment. Patient lives at home alone.. Patient is independent. At discharge patient will require placement to a SNF. CM discussed availability of home health, rehab services, and medical equipment. CM spoke to Marco about SNF and she was going to look them up on website and speak with siblings and call CM back with VLADIMIR, CM will continue to follow and will assist as needed with dc plans/needs. DCP REVIEW SUMMARY ANTICIPATED D/C DATE: EXPECTED LOS : CASE STATUS: DCP Initiated INITIAL REVIEW: 11/25/2020 INITIAL REVIEWER: Georgette Escamilla FINAL DISCHARGE DISPOSITION: : FINAL REVIEWER: FINAL REVIEW DATE: DCP Focus Questions & Answers DCP Screen QUESTION: ANSWER High Risk Factors: : Hosp related to CHF, COPD, DM, End Stage Ds, CVA, CA DCP Evaluation QUESTION: ANSWER Patient and/or caregiver agree upon recommended discharge plan? : Yes Patient's current cognitive status: : Confused Patient's ability to cope with chronic illness : d. No chronic illness Patient gives permission to discuss discharge plans with: (name, relationship and number) : MARCO GRIFFITHS [phone] LUIS TAM [phone] Family / Caregiver's ability to cope with chronic illness: : b. Minimal (occasionally not dependable to meet pt's. needs, can meet pt's. basic ADL's) Alternate discharge plan (if recommended plan not agreed upon by patient and/or caregiver): : SNF -PLACEMENT Does the patient have the ability to pay for or attain post discharge needs / services? : Yes Functional screen assessment: : Noticeable poor ADL management Family / Caregiver's ability to cope with chronic illness: : b. Minimal (occasionally not dependable to meet pt's. needs, can meet pt's. basic ADL's) Physical Status: : Independent with ADL's Is there a likelihood that the patient will require additional services to return to the preadmission environment? : Yes Living Arrangements: : Home Alone with Support Results of this evaluation have been discussed with: : Family Patient with capacity for self-care or can be cared for in same environment as prior to hospitalization? : No Baseline cognitive status: : *Oriented to person, place, situation, time and present Physical environment modification needed / anticipated for discharge: : Yes Planned post hospital services available for patient? : Yes Planned post hospital services covered by insurance plan? : Yes Does Patient have transportation to get home and to follow-up medical appointments when discharged from the hospital? : Yes Would patient like to participate in any Care Coordination programs (if applicable): : Not applicable Does the patient have electricity at home? : Yes Does the patient have running water in their house? : Yes Mental health screen: : No mental health history Resources / Services in place: : None DCP Re-evaluation QUESTION: ANSWER Would patient like to participate in any Care Coordination programs (if applicable): : Not applicable PATIENT: ROSALIA NEWELL ENCOUNTER: [id number] MEDICAL RECORD#: [id number] ADMISSION DATE: 11/25/2020 DISCHARGE DATE: ATTENDING MD: YU PATEL : AGE: 70 MARITAL STATUS: S DC PLAN ID: [id number] FACILITY: [facility] PRINTED ON: 12/06/20 9:59 CT All edits/amendments must be made on the electronic document DICTATION DATE: 12/06/20958 AIR MOVING TECHNICIAN: CHAN 12/06/20958 RPT#: [id number] DC DATE: STATUS: ADM IN [facility] [address] [place] [address] END OF REPORT
[2020-12-06 12:23] VITALS: BP 129/73
--- NOTE | 2020-12-06 12:23 | NUR ---
Nutrition Follow-up: Nursing reports pt tolerating TF @ 50 mL/hr this AM with plans to increase to goal rate today. Diet: Osmolite 1.5 - goal rate 55 mL/hr + H2O flushes 25 mL q hr No new wt; last wt: 151# (12/01) Labs noted: K+ 3.4, Glu 134, Ca 8.0, Alb 2.6, Na 139 Meds noted: Thiamine, Folate, Pepcid, NS @ 50, electrolyte protocol -Increase TF to goal rate as tolerated. -Need new wt. -RD follow-up: 12/09
[2020-12-06 16:45] VITALS: BP 128/69
--- NOTE | 2020-12-06 22:06 | NUR ---
BEDTIME MEDS GIVEN. PT AWAKE, PULLING AT HIS COVERS. TUBINGS AND LINES SECURED. NS @ 50ML/HR INFUSING.
[2020-12-07 01:47] VITALS: BP 118/70
[2020-12-07 05:50] VITALS: BP 171/91
[2020-12-07 06:31] LABS: BASOPHILS 0.6 % (0-2); EOSINOPHILS 2.2 % (0-7); HEMATOCRIT 36.8 % (42.0-54.0); HEMOGLOBIN 12.5 g/dL (13.5-17.5); IMMATURE GRANULOCYTES 0.6 % (0-5); LYMPHOCYTE ABS# 0.63 10x3/uL (1.32-3.57); LYMPHOCYTES 12.5 % (15-50); MCH 29.2 pg (26.0-34.0); MEAN PLATELET VOLUME 10.3 fL (7.4-10.4); MONOCYTES 18.3 % (2-11); NEUTROPHIL ABS# 3.31 10x3/uL (1.78-5.38); NEUTROPHILS 65.8 % (40-80); PLATELET COUNT 286 10x3/uL (130-400); RBC 4.28 10x6/uL (4.20-6.10); RDW 13.7 % (11.5-14.5)
[2020-12-07 06:59] LABS: ALBUMIN 2.6 g/dL (3.4-5.0); ALKALINE PHOSPHATASE 87 U/L (30-120); ALT (SGPT) 24 U/L (10-68); BILIRUBIN - TOTAL 0.29 mg/dL (0.2-1.3); CALC OSMOLALITY 280 mosm/kg (275-300); CALCIUM 8.1 mg/dL (8.5-10.1); CARBON DIOXIDE 20.5 mmol/L (21.0-32.0); CHLORIDE - SERUM 107 mmol/L (98-107); CREATININE - SERUM 0.9 mg/dL (0.6-1.3); GLUCOSE 101 mg/dL (74-106); MAGNESIUM - SERUM 1.9 mg/dL (1.8-2.4); POTASSIUM - SERUM 3.9 mmol/L (3.5-5.1); SODIUM 139 mmol/L (136-145); UREA NITROGEN 21 mg/dL (7-18); eGFR NON AFRICAN AMERICAN 89 mL/min (90-120)
[2020-12-07 08:00] VITALS: BP 131/76
--- NOTE | 2020-12-07 09:15 | NUR ---
PT RESTING COMFORTABLY, EYES CLOSED BREATHS EVEN REGULAR AND UNLABORED. NO SIGNS OR SYMPTOMS OF ACUTE DISTRESS NOTED AT THIS TIME. CL IN REACH,S RX2, BED ALARM ON AND ACTIVE WNL.
[2020-12-07 11:00] VITALS: BP 119/68
--- NOTE | 2020-12-07 11:25 | NUR ---
I have reviewed this patient and I concur with the Shift Assessment completed by the Licensed Practical Nurse today this shift.
--- NOTE | 2020-12-07 14:15 | NUR ---
pt resting peacefully as he HAS BEEN ALL DAY. EYES CLOSED, BREATHS EVEN REGULAR AND UNLABORED NO SIGNS OR SYMPTOMS OF ACUTE DISTRESS NOTED AT THIS TIME. CL IN REACH, SRX2.
[2020-12-07 15:00] VITALS: BP 121/73
--- NOTE | 2020-12-07 19:40 | NUR ---
INITIAL ROUNDS COMPLETED. PT RESTING WITH EYES CLOSED. RESP EVEN AND REGULAR. SR UP X2, CALL LIGHT WITHIN REACH.
[2020-12-07 20:30] VITALS: BP 127/64
--- NOTE | 2020-12-07 22:09 | NUR ---
ASSESSMENT COMPLETED [id number] HRS. VSS. SR PER CM HR 74. PT ALERT, ORIENTED TO PERSON ONLY. PT MUMBLES. IV TO RFA WITH NS AT 50CC/HR IV PATENT. LUNGS DIMINISHED IN BASES BILAT. ANAYA. PALPABLE PERIPHERAL PULSES. OSMOLYTE 1.5 INFUSING VIA PEG AT 50CC/HR. PEG PATENT. DRSG TO LLE CLEAN,DRY AND INTACT. PM MED GIVEN VIA PEG. 15CC RESIDUAL NOTED TO PEG TUBE. PT CURRENTLY RESTING WITH EYES CLOSED. RESP EVEN AND REGULAR. SR UP X2, CALL LIGHT WITHIN REACH AND BED ALARM ON.
--- NOTE | 2020-12-07 23:55 | NUR ---
PT INCONTINENT OF URINE. INCONTINENT CARE DONE. PT REPOSITONED ONTO L SIDE. NEW ENTERAL FEEDING BAG HUNG WITH OSMOLYTE 1.5 AT 50CC/HR. PT TOLERATED WELL. PT CURRENTLY WATCHING TV. SR UP X2, CALL LIGHT WITHIN REACH AND BED ALARM ON.
[2020-12-08] VITALS (7 sets, daily range): BP systolic 122–171; BP diastolic 59–82
--- NOTE | 2020-12-08 02:10 | NUR ---
PT INCONTINENT OF URINE. INCONTINENT CARE DONE. PT REPOSITIONED IN BED. SR UP X3, CALL LIGHT WITHIN REACH.
--- NOTE | 2020-12-08 04:38 | NUR ---
WATCHING TV. NO DISTRESS NOTED. SR UP X3, CALL LIGHT WITHIN REACH AND BED ALRM ON.
--- NOTE | 2020-12-08 06:31 | NUR ---
PT INCONTINENT OF URINE. INCONTINENT CARE DONE. 20CC RESIDUAL NOTED TO PEG TUBE. VSS THROUGHOUT NIGHT. NEEDS MET; WILL CONTINUE TO MONITOR.
[2020-12-08 07:02] LABS: BASOPHILS 0.5 % (0-2); EOSINOPHILS 2.9 % (0-7); HEMATOCRIT 33.7 % (42.0-54.0); HEMOGLOBIN 11.2 g/dL (13.5-17.5); IMMATURE GRANULOCYTES 0.7 % (0-5); LYMPHOCYTE ABS# 0.59 10x3/uL (1.32-3.57); MCH 28.6 pg (26.0-34.0); MCHC 33.2 g/dL (31.0-37.0); MCV 86.2 fL (80.0-100.0); MEAN PLATELET VOLUME 10.5 fL (7.4-10.4); MONOCYTES 13.8 % (2-11); NEUTROPHIL ABS# 2.87 10x3/uL (1.78-5.38); NEUTROPHILS 68.1 % (40-80); PLATELET COUNT 302 10x3/uL (130-400); RBC 3.91 10x6/uL (4.20-6.10); RDW 13.6 % (11.5-14.5); WBC 4.2 10x3/uL (4.8-10.8)
[2020-12-08 07:26] LABS: ALBUMIN 2.5 g/dL (3.4-5.0); ALKALINE PHOSPHATASE 90 U/L (30-120); ALT (SGPT) 22 U/L (10-68); CALC OSMOLALITY 281 mosm/kg (275-300); CALCIUM 8.4 mg/dL (8.5-10.1); CARBON DIOXIDE 28.7 mmol/L (21.0-32.0); CHLORIDE - SERUM 105 mmol/L (98-107); GLUCOSE 151 mg/dL (74-106); POTASSIUM - SERUM 3.5 mmol/L (3.5-5.1); PROTEIN - SERUM 6.4 g/dL (6.4-8.2); SODIUM 138 mmol/L (136-145); UREA NITROGEN 22 mg/dL (7-18); eGFR NON AFRICAN AMERICAN 79 mL/min (90-120)
--- NOTE | 2020-12-08 10:41 | NUR ---
PT AWAKE AND CONFUSED. LYING IN BED. PEG TUBE WORKING WNL, MEDS GIVEN WITHOUT DIFFICULTY. PT COMPLAINING OF PAIN, AMDINISTERED PRN TYLENOL. CLEANED AND DRIED PT, CHANGED LINNENS. APPLIED CONDOM CATHETER. CURRENTLY IN PLACE. PT BACK TO RESTING COMFROTABLY, EYES CLOSED. BREATHS EVEN/REGULAR AND UNLABORED. CL IN REACH, SRX2, BED ALARM ON AND ACTIVE.
--- NOTE | 2020-12-08 12:30 | NUR ---
PT AWAKE AND CONFUSED. CONTINUOUSLY YELLING LOUDLY AND SAYING HE CAN'T GET COMFORTABLE. REARRANGED PT MULTIPLE TIMES AND PT WILL STATE THAT IT HELPED AND THE VERY MINUTE WE EXIT THE ROOM, PT BEGINS SCREAMING THAT HE IS UNCOMFORATABLE. CONDOMM CATHETER IN TACT, DRAINING WELL. CL IN REACH, SRX2, BED ALARM ON AND ACTIVE.
--- NOTE | 2020-12-08 15:32 | NUR ---
I have reviewed this patient and I concur with the Shift Assessment completed by the Licensed Practical Nurse today this shift.
--- NOTE | 2020-12-08 18:17 | NUR ---
PT ALERT AND ORIENTED, LYING IN BED WATCHING T/V. CONDOM CATH IN PLACE AND WORKING. I/V INFILTRATED, 1 STCK TO THE RFA 20G. CL IN REACH,SRX2.
--- NOTE | 2020-12-08 18:19 | NUR ---
22 GAUGE IV PLACED TO RIGHT LATERAL FOREARM X 1 STICK, GOOD BLOOD RETURN, EASY FLUSH. TAPED, DATED, AND SECURED. PATIENT TOLERATED IV PLACEMENT WELL. PATIENTS NURSE DICK MADE AWARE OF SUCCESSFULL IV PLACEMENT.
--- NOTE | 2020-12-08 21:40 | NUR ---
INITIAL ROUNDS COMPLETED AT 1905 HRS. NO DISTRESS NOTED. PT REQUESTING PAIN MEDS. INFORMED PT NEXT PAIN MED DUE AT 2300 HRS. PT GRUMBLED UNDER HIS BEATH. ASSESSMENT COMPLETED AT 5 HRS. SR PER CM HR 61. PT ALERT, ORIENTED TO PERSON AND PLACE. REORIENTED TO TIME AND SITUATION. IV TO RFA EITH NS AT 50CC/HR. IV PATENT. LUNGS DIMINISHED IN BASES BILAT. ANAYA. PALPABLE PERIPHERAL PULSES. ABD WITH AVTIVE BS NOTED. PEG TUBE WITH OSMOLYTE 1.5 AT 50CC/HR. 15CC RESIDUAL NOTED. BINDER IN PLACE. CONDOM CATH DRAINING YELLOW URINE. PM MEDS GIVEN VIA PEG WITHOUT PROBLEMS. REPOSITIONED PT ONTO L SIDE. PT CURRENTLY WATCHING TV. SR UP X2, CALL LIGHT WITHIN REACH.
--- NOTE | 2020-12-08 22:22 | NUR ---
REPOSITONED ONTO R SIDE. SR UP X2,CALL LIGHT WITHIN REACH.
--- NOTE | 2020-12-09 01:30 | NUR ---
PT DEMANDING PAIN MEDS; INFORMED PT NOT DUE UNTIL 0500. PT BECAME BELLIGERENT. Abiodun NICHOLS RN CHARGE IN ROOM.
--- NOTE | 2020-12-09 01:56 | NUR ---
SPOKE WITH HEALTHSTSHYLA ARGUETA. INFORMED OF PT'S C/O PAIN. INFOMRED OF PT'S CONDITION AND UPDATE GIVEN. NEW ORDERS RECEIVED.
--- NOTE | 2020-12-09 02:34 | NUR ---
NORCO 5/325 GIVEN VIA PEG TUBE. PT PULLED OFF CONDOM CATH. NEW CONDOM CATH APPLIED. SR UP X3, CALL LIGHT WITHIN REACH.
--- NOTE | 2020-12-09 04:28 | NUR ---
PT RESTING WITH EYES CLOSED. RESP EVEN AND REGULAR. SR UP X2, CALL LIGHT WITHIN REACH.
--- NOTE | 2020-12-09 05:09 | NUR ---
NEW ENTERAL FEEDING BAG HUNG WITH OSMOLYTE 1.5 AT 50CC/HR. 20CC OF RESIDUAL NOTED.
--- NOTE | 2020-12-09 06:20 | NUR ---
VSS THROUGHOUT NIGHT. PT RESTED WELL AFTER NORCO ADMINISTRATION. NEEDS MET; WILL CONTINUE TO MONITOR.
[2020-12-09 08:44] VITALS: BP 137/73
--- NOTE | 2020-12-09 10:18 | NUR ---
PT AWAKE AND ORIENTED, EXPRESSES THAT HE IS IN A FOWL MOOD AND FRUSTRATED WITH HIS LACK OF ACTIVITY. STATES THAT HE IS UPSET THAT HE CAN NOT EAT AND IS HUNGRY. CALLED SPEECH THERAPY FOR A REEVALUATION, TO ASSESS ABILITY TO CHANGE DIET. REPLACED CONDOM CATHETER, WORKING WELL AT THIS TIME. CL IN REACH, SRX2, BED ALARM ON AND ACTIVE.
[2020-12-09 10:35] LABS: BASOPHILS 0.6 % (0-2); EOSINOPHILS 1.7 % (0-7); HEMATOCRIT 32.8 % (42.0-54.0); IMMATURE GRANULOCYTES 0.4 % (0-5); LYMPHOCYTES 12.6 % (15-50); MCH 28.5 pg (26.0-34.0); MCHC 33.5 g/dL (31.0-37.0); MEAN PLATELET VOLUME 10.9 fL (7.4-10.4); MONOCYTES 12.8 % (2-11); NEUTROPHIL ABS# 3.41 10x3/uL (1.78-5.38); NEUTROPHILS 71.9 % (40-80); PLATELET COUNT 341 10x3/uL (130-400); RBC 3.86 10x6/uL (4.20-6.10); RDW 13.4 % (11.5-14.5); WBC 4.8 10x3/uL (4.8-10.8)
[2020-12-09 10:47] LABS: ALBUMIN 2.5 g/dL (3.4-5.0); ALKALINE PHOSPHATASE 88 U/L (30-120); ALT (SGPT) 23 U/L (10-68); BILIRUBIN - TOTAL 0.29 mg/dL (0.2-1.3); CALC OSMOLALITY 270 mosm/kg (275-300); CARBON DIOXIDE 26.4 mmol/L (21.0-32.0); CHLORIDE - SERUM 102 mmol/L (98-107); CREATININE - SERUM 0.9 mg/dL (0.6-1.3); GLUCOSE 121 mg/dL (74-106); PROTEIN - SERUM 5.8 g/dL (6.4-8.2); SODIUM 134 mmol/L (136-145); UREA NITROGEN 19 mg/dL (7-18); eGFR NON AFRICAN AMERICAN 89 mL/min (90-120)
[2020-12-09 10:49] LABS: POTASSIUM - SERUM 4.3 mmol/L (3.5-5.1)
--- NOTE | 2020-12-09 11:54 | MORECARE ---
CASE MANAGEMENT DISCHARGE SUMMARY PATIENT: ROSALIA NEWELL UNIT: [id number] ADM DATE: 11/25/20 AGE: 70 : 52 SEX: M ROOM/BED: D.2108 AUTHOR: MARGY,DOC PHYSICIAN: REFERRING PHYSICIAN: YU MENDOZA MD DATE OF SERVICE: 12/09/20 Case Management Discharge Planning Summary COMMENTS ENTERED DATE: 12/09/20 11:51 CT COMMENT TYPE: Discharge Planning REVIEWER: Josiane Lopez CM spoke with Arleth with [facility] in [place] and Arleth states they will not have a bed until at ase Wednesday. I called patient's sister to inform her and left a message on her answering machine to return my call. Arleth states that they have sister facilities in [facility] and [facility] that she could refer to if the sister desires. I will speak with the sister about another choice for SNF. ENTERED DATE: 12/06/20 9:57 CT COMMENT TYPE: Discharge Planning REVIEWER: Josiane Lopez CM spoke with Arleth with [email or web address] in [place] and I faxed clinical per request. CM will continue to follow and assist with discharge planning/needs. ENTERED DATE: 12/06/20 9:30 CT COMMENT TYPE: Discharge Planning REVIEWER: Josiane Lopez CM called [facility] in [place] and spoke with Laura. She states she will tell Arleth and provide her my number. CM will continue to follow and assist with discharge planning/needs. ENTERED DATE: 12/06/20 6:31 CT COMMENT TYPE: Discharge Planning REVIEWER: Georgette Escamilla Late Entry 12-05-20 CM received a message Marco patient's sister of SNF [facility] she requested [facility] [phone] fax [phone] this facility in [place]. CM will send a referral. and follow up. ENTERED DATE: 12/06/20 6:20 CT COMMENT TYPE: Discharge Planning REVIEWER: Georgette Escamilla LATE ENTRY 12/04/20 CM spoke with patient's sister Marco Griffiths [phone] to complete initial dc planning assessment. Patient lives at home alone.. Patient is independent. At discharge patient will require placement to a SNF. CM discussed availability of home health, rehab services, and medical equipment. CM spoke to Marco about SNF and she was going to look them up on website and speak with siblings and call CM back with [facility], CM will continue to follow and will assist as needed with dc plans/needs. DCP REVIEW SUMMARY ANTICIPATED D/C DATE: EXPECTED LOS : CASE STATUS: DCP Initiated INITIAL REVIEW: 11/25/2020 INITIAL REVIEWER: Georgette Escamilla FINAL DISCHARGE DISPOSITION: : FINAL REVIEWER: FINAL REVIEW DATE: DCP Focus Questions & Answers DCP Screen QUESTION: ANSWER High Risk Factors: : Hosp related to CHF, COPD, DM, End Stage Ds, CVA, CA DCP Evaluation QUESTION: ANSWER Patient and/or caregiver agree upon recommended discharge plan? : Yes Family / Caregiver's ability to cope with chronic illness: : b. Minimal (occasionally not dependable to meet pt's. needs, can meet pt's. basic ADL's) Patient's current cognitive status: : Confused Patient gives permission to discuss discharge plans with: (name, relationship and number) : MARCO GRIFFITHS [phone] LUIS TAM [phone] Patient's ability to cope with chronic illness : d. No chronic illness Alternate discharge plan (if recommended plan not agreed upon by patient and/or caregiver): : SNF -PLACEMENT Does the patient have the ability to pay for or attain post discharge needs / services? : Yes Functional screen assessment: : Noticeable poor ADL management Family / Caregiver's ability to cope with chronic illness: : b. Minimal (occasionally not dependable to meet pt's. needs, can meet pt's. basic ADL's) Physical Status: : Independent with ADL's Is there a likelihood that the patient will require additional services to return to the preadmission environment? : Yes Living Arrangements: : Home Alone with Support Results of this evaluation have been discussed with: : Family Patient with capacity for self-care or can be cared for in same environment as prior to hospitalization? : No Baseline cognitive status: : *Oriented to person, place, situation, time and present Physical environment modification needed / anticipated for discharge: : Yes Planned post hospital services available for patient? : Yes Planned post hospital services covered by insurance plan? : Yes Does Patient have transportation to get home and to follow-up medical appointments when discharged from the hospital? : Yes Would patient like to participate in any Care Coordination programs (if applicable): : Not applicable Does the patient have electricity at home? : Yes Does the patient have running water in their house? : Yes Mental health screen: : No mental health history Resources / Services in place: : None DCP Re-evaluation QUESTION: ANSWER Would patient like to participate in any Care Coordination programs (if applicable): : Not applicable PATIENT: ROSALIA NEWELL ENCOUNTER: [id number] MEDICAL RECORD#: [id number] ADMISSION DATE: 11/25/2020 DISCHARGE DATE: ATTENDING MD: YU PATEL : AGE: 70 MARITAL STATUS: S DC PLAN ID: [id number] FACILITY: [facility] PRINTED ON: 12/09/20 11:54 CT All edits/amendments must be made on the electronic document DICTATION DATE: 12/09/20 1154 AERODYNAMICS ENGINEER: DM 12/09/20 1154 RPT#: [id number] DC DATE: STATUS: ADM IN [facility] [address] [place] [address] END OF REPORT
--- NOTE | 2020-12-09 12:29 | NUR ---
Nutrition Reassessment/Follow-up: TF running @ 50 mL/hr. Discussed increasing to goal rate with nursing. Nursing also reports pt upset about not eating. ST keyonna this AM recs mech soft with nectar thick liquids. Diet: Regular, Mech Soft, [place] Thick Liquids Osmolite 1.5 - goal rate 55 mL/hr + H2O flushes 25 mL q hr No new wt; last wt: 151# (12/01) Labs noted: Glu 151, Ca 8.4, Alb 2.5 Meds noted: Thiamine, Folate, Pepcid, NS @ 50, electrolyte protocol -Nutrition needs unchanged; no new wt available. -Depending upon PO intake, may be able to d/c TF. -Need new wt. -RD will follow up within 2-3 days.
[2020-12-09 13:36] VITALS: BP 205/96
--- NOTE | 2020-12-09 14:33 | MORECARE ---
CASE MANAGEMENT DISCHARGE SUMMARY PATIENT: ROSALIA NEWELL UNIT: [id number] ADM DATE: 11/25/20 AGE: 70 : 52 SEX: M ROOM/BED: D.2108 AUTHOR: MARGY,DOC PHYSICIAN: REFERRING PHYSICIAN: YU MENDOZA MD DATE OF SERVICE: 12/09/20 Case Management Discharge Planning Summary COMMENTS ENTERED DATE: 12/09/20 14:29 CT COMMENT TYPE: Discharge Planning REVIEWER: Josiane John Patient's daughter calls back and declines another choice at this time. She wants to see if patient can be discharged Wednesday to [facility] in [place]. I have informed Karen. ENTERED DATE: 12/09/20 11:51 CT COMMENT TYPE: Discharge Planning REVIEWER: Josiane Lopez CM spoke with Arleth with [facility] in [place] and Arleth states they will not have a bed until at lease Wednesday. I called patient's sister to inform her and left a message on her answering machine to return my call. Arleth states that they have sister facilities in [facility] that she could refer to if the sister desires. I will speak with the sister about another choice for SNF. ENTERED DATE: 12/06/20 9:57 CT COMMENT TYPE: Discharge Planning REVIEWER: Josiane Lopez CM spoke with Arleth with [facility] in [place] and I faxed clinical per request. CM will continue to follow and assist with discharge planning/needs. ENTERED DATE: 12/06/20 9:30 CT COMMENT TYPE: Discharge Planning REVIEWER: Josiane Lopez CM called [facility] in [place] and spoke with Laura. She states she will tell Arleth and provide her my number. CM will continue to follow and assist with discharge planning/needs. ENTERED DATE: 12/06/20 6:31 CT COMMENT TYPE: Discharge Planning REVIEWER: Georgette Escamilla Late Entry 12-05-20 CM received a message Marco patient's sister of SNF [facility] she requested [facility] [phone] fax [phone] this facility in [place]. CM will send a referral. and follow up. ENTERED DATE: 12/06/20 6:20 CT COMMENT TYPE: Discharge Planning REVIEWER: Georgette Escamilla LATE ENTRY 12/04/20 CM spoke with patient's sister Marco Griffiths [phone] to complete initial dc planning assessment. Patient lives at home alone.. Patient is independent. At discharge patient will require placement to a SNF. CM discussed availability of home health, rehab services, and medical equipment. CM spoke to Marco about SNF and she was going to look them up on website and speak with siblings and call CM back with [facility], CM will continue to follow and will assist as needed with dc plans/needs. DCP REVIEW SUMMARY ANTICIPATED D/C DATE: EXPECTED LOS : CASE STATUS: DCP Initiated INITIAL REVIEW: 11/25/2020 INITIAL REVIEWER: Georgette Escamilla FINAL DISCHARGE DISPOSITION: : FINAL REVIEWER: FINAL REVIEW DATE: DCP Focus Questions & Answers DCP Screen QUESTION: ANSWER High Risk Factors: : Hosp related to CHF, COPD, DM, End Stage Ds, CVA, CA DCP Evaluation QUESTION: ANSWER Patient and/or caregiver agree upon recommended discharge plan? : Yes Family / Caregiver's ability to cope with chronic illness: : b. Minimal (occasionally not dependable to meet pt's. needs, can meet pt's. basic ADL's) Patient's current cognitive status: : Confused Patient gives permission to discuss discharge plans with: (name, relationship and number) : MARCO GRIFFITHS [phone] LUIS TAM [phone] Patient's ability to cope with chronic illness : d. No chronic illness Alternate discharge plan (if recommended plan not agreed upon by patient and/or caregiver): : SNF -PLACEMENT Does the patient have the ability to pay for or attain post discharge needs / services? : Yes Functional screen assessment: : Noticeable poor ADL management Family / Caregiver's ability to cope with chronic illness: : b. Minimal (occasionally not dependable to meet pt's. needs, can meet pt's. basic ADL's) Physical Status: : Independent with ADL's Is there a likelihood that the patient will require additional services to return to the preadmission environment? : Yes Living Arrangements: : Home Alone with Support Results of this evaluation have been discussed with: : Family Patient with capacity for self-care or can be cared for in same environment as prior to hospitalization? : No Baseline cognitive status: : *Oriented to person, place, situation, time and present Physical environment modification needed / anticipated for discharge: : Yes Planned post hospital services available for patient? : Yes Planned post hospital services covered by insurance plan? : Yes Does Patient have transportation to get home and to follow-up medical appointments when discharged from the hospital? : Yes Would patient like to participate in any Care Coordination programs (if applicable): : Not applicable Does the patient have electricity at home? : Yes Does the patient have running water in their house? : Yes Mental health screen: : No mental health history Resources / Services in place: : None DCP Re-evaluation QUESTION: ANSWER Would patient like to participate in any Care Coordination programs (if applicable): : Not applicable PATIENT: ROSALIA NEWELL ENCOUNTER: [id number] MEDICAL RECORD#: [id number] ADMISSION DATE: 11/25/2020 DISCHARGE DATE: ATTENDING MD: YU PATEL : AGE: 70 MARITAL STATUS: S DC PLAN ID: [id number] FACILITY: [facility] PRINTED ON: 12/09/20 14:33 CT All edits/amendments must be made on the electronic document DICTATION DATE: 12/09/20 0353 SEAM FINISHER: CHAN 12/09/20 1433 RPT#: [id number] DC DATE: STATUS: ADM IN [facility] [address] [place] [address] END OF REPORT
--- NOTE | 2020-12-09 18:03 | NUR ---
I have reviewed this patient and I concur with the Shift Assessment completed by the Licensed Practical Nurse today this shift.
--- NOTE | 2020-12-09 19:00 | NUR ---
REPORT GIVEN BY DAY SHIFT RN.
--- NOTE | 2020-12-09 19:30 | NUR ---
INTRODUCED MYSELF TO PT. HE HAS HAD A CVA WITH LEFT SIDE WEAKNESS. HIS SPEECH IS GARBLED BUT HE UNDERSTANDS WHAT IS BEING SAID. HE ONLY GETS UP WITH PT. PT AT TIMES HAS PERIODS OF CONFUSION. HIS IV IS IN THE RIGHT FOREARM WITH NS AT 50ML/HR. HE HAS A PEG WITH OSMALYTE IN FUSING. HE HAS A CONDOM CATH IN PLACE. HE HAS LABLED BANDAIDS ON HIS LOWER EXTREMITIES. HE HAS AN EGG CRATE MATTRESS FOR COMFORT.
[2020-12-09 20:11] VITALS: BP 199/100
[2020-12-09 23:55] VITALS: BP 163/90
--- NOTE | 2020-12-10 02:00 | NUR ---
PT PEG TUBE TUBING WAS CHANGED. PT WAS WIPED OFF WELL AFTER CONDOM CATH CAME OFF AND SOAKED THE PT. HE FELT MUCH BETTER AFTER BEING CLEANED UP. PT TRIES VERY HARD TO TALK BUT YOU HAVE TO LISTEN CLOSELY TO HEAR HIM. HE IS FRUSTRATED WITH NOT BEING ABLE TO USE LEFT HAND AND LEG. HE HAS NO NEW C/O OR PROBLEMS.
--- NOTE | 2020-12-10 07:20 | NUR ---
PT LAYING IN BED RESTING COMFORTABLE, DENIES PAIN AT THIS TIME, POSITIONED FOR COMFORT, WILL MONITOR
[2020-12-10 08:17] VITALS: BP 172/92
--- NOTE | 2020-12-10 10:00 | NUR ---
GILBERTO CARE PROVIDED AND CLOTTED BLOOD NOTED AROUND RECTUM, DR MENDOZA NOTIFIED AND DR LEROY CONSULTED, WILL MONITOR
[2020-12-10 10:14] LABS: BASOPHILS 0.3 % (0-2); EOSINOPHILS 1.2 % (0-7); HEMATOCRIT 34.6 % (42.0-54.0); HEMOGLOBIN 11.7 g/dL (13.5-17.5); IMMATURE GRANULOCYTES 0.2 % (0-5); LYMPHOCYTE ABS# 0.53 10x3/uL (1.32-3.57); LYMPHOCYTES 9.2 % (15-50); MCH 28.8 pg (26.0-34.0); MCHC 33.8 g/dL (31.0-37.0); MCV 85.2 fL (80.0-100.0); MEAN PLATELET VOLUME 10.7 fL (7.4-10.4); MONOCYTES 9.2 % (2-11); NEUTROPHIL ABS# 4.57 10x3/uL (1.78-5.38); NEUTROPHILS 79.9 % (40-80); PLATELET COUNT 363 10x3/uL (130-400); RBC 4.06 10x6/uL (4.20-6.10); RDW 13.4 % (11.5-14.5); WBC 5.7 10x3/uL (4.8-10.8)
[2020-12-10 10:18] LABS: ALBUMIN 2.9 g/dL (3.4-5.0); ALKALINE PHOSPHATASE 108 U/L (30-120); ALT (SGPT) 25 U/L (10-68); BILIRUBIN - TOTAL 0.41 mg/dL (0.2-1.3); CALC OSMOLALITY 273 mosm/kg (275-300); CALCIUM 8.3 mg/dL (8.5-10.1); CARBON DIOXIDE 25.3 mmol/L (21.0-32.0); CHLORIDE - SERUM 104 mmol/L (98-107); GLUCOSE 161 mg/dL (74-106); POTASSIUM - SERUM 4.3 mmol/L (3.5-5.1); PROTEIN - SERUM 7.2 g/dL (6.4-8.2); SODIUM 135 mmol/L (136-145); UREA NITROGEN 15 mg/dL (7-18); eGFR NON AFRICAN AMERICAN 79 mL/min (90-120)
[2020-12-10 12:42] VITALS: BP 164/86
--- NOTE | 2020-12-10 13:30 | NUR ---
SISTER AT BEDSIDE
[2020-12-10 15:57] VITALS: BP 191/93
[2020-12-10 16:40] VITALS: BP 126/61
--- NOTE | 2020-12-10 17:00 | NUR ---
assisted pt with dinner, tolerated well, will monitor
[2020-12-10 20:00] VITALS: BP 133/76
[2020-12-10 21:00] VITALS: BP 133/76
--- NOTE | 2020-12-10 22:26 | NUR ---
Pt resting in bed with eyes closed, no distress noted. Pt awoke with ease and was cleaned, changed and repositioned for comfort. Assessment and vitals per flow sheet, meds per MAR.
[2020-12-11 00:06] VITALS: BP 152/76
[2020-12-11 05:03] VITALS: BP 131/83
[2020-12-11 05:46] LABS: BASOPHILS 0.3 % (0-2); EOSINOPHILS 0.9 % (0-7); HEMATOCRIT 35.8 % (42.0-54.0); IMMATURE GRANULOCYTES 0.3 % (0-5); LYMPHOCYTE ABS# 0.78 10x3/uL (1.32-3.57); LYMPHOCYTES 10.3 % (15-50); MCH 28.5 pg (26.0-34.0); MCHC 33.5 g/dL (31.0-37.0); MEAN PLATELET VOLUME 10.8 fL (7.4-10.4); MONOCYTES 10.1 % (2-11); NEUTROPHIL ABS# 5.89 10x3/uL (1.78-5.38); NEUTROPHILS 78.1 % (40-80); PLATELET COUNT 419 10x3/uL (130-400); RBC 4.21 10x6/uL (4.20-6.10); RDW 13.6 % (11.5-14.5)
[2020-12-11 06:10] LABS: ALBUMIN 3.2 g/dL (3.4-5.0); ALKALINE PHOSPHATASE 104 U/L (30-120); ALT (SGPT) 27 U/L (10-68); BILIRUBIN - TOTAL 0.41 mg/dL (0.2-1.3); CALC OSMOLALITY 276 mosm/kg (275-300); CALCIUM 8.9 mg/dL (8.5-10.1); CARBON DIOXIDE 24.3 mmol/L (21.0-32.0); CHLORIDE - SERUM 102 mmol/L (98-107); GLUCOSE 146 mg/dL (74-106); PROTEIN - SERUM 7.2 g/dL (6.4-8.2); SODIUM 136 mmol/L (136-145); UREA NITROGEN 18 mg/dL (7-18); eGFR NON AFRICAN AMERICAN 79 mL/min (90-120)
[2020-12-11 06:11] LABS: POTASSIUM - SERUM 5.2 mmol/L (3.5-5.1)
[2020-12-11 06:22] LABS: WBC 7.5 10x3/uL (4.8-10.8)
--- NOTE | 2020-12-11 07:00 | NUR ---
Lying in bed, awake/alert/confused, speech slurred/garbled, T/R freq for C/C, incont of B/B with use of incont pads ad kathy, G-tube placement checked via A/A with no residual noted, Osmolyte infusing via pump @ 50 mL/hr, feeding increased to 55 per order, 100 mL H20 flush q 8 hr, no s/s of pain exhibited such as grimacing/grunting/groaning, call light/phone within reach, no s/s of acute distress observed at this time.
[2020-12-11 08:00] VITALS: BP 116/76
--- NOTE | 2020-12-11 12:23 | NUR ---
Nutrition Follow-up: Nursing reports pt tolerating TF @ 55 mL/hr; not eating much. ST following. Noted K+ elevated; will monitor. Awaiting placement. Diet: Osmolite @ 55 mL/hr + H2O flushes 25 mL q hr Regular, Puree, [place] Thick Liquids No new wt; last wt: 151# (12/01) Labs noted: K+ 5.2, Glu 146, Alb 3.2 Meds noted: Thiamine, Folate, Pepcid, NS @ 50, electrolyte protocol -Continue TF as tolerated. -Need new wt. -RD follow-up: 12/13
--- NOTE | 2020-12-11 15:23 | NUR ---
PATIENT WAS MAX ASST X2 TO GET UP TO BEDSIDE. PATIENT NEEDED MAX ASST TO STAY SITTING UP RIGHT. PATIENT WAS MAX ASST X 2 TO LAY BACK IN BED.
--- NOTE | 2020-12-11 19:30 | NUR ---
PT IN BED, EYES CLOSED, RESP EVEN AND UNLABORED, NO DISTRESS NOTED, CL IN REACH, SR UP X 2.
[2020-12-11 20:00] VITALS: BP 163/64
--- NOTE | 2020-12-12 01:53 | MORECARE ---
CASE MANAGEMENT DISCHARGE SUMMARY PATIENT: ROSALIA NEWELL UNIT: [id number] ADM DATE: 11/25/20 AGE: 70 : 54 SEX: M ROOM/BED: D.2108 AUTHOR: MARGY,DOC PHYSICIAN: REFERRING PHYSICIAN: YU MENDOZA MD DATE OF SERVICE: 12/12/20 Case Management Discharge Planning Summary COMMENTS ENTERED DATE: 12/12/20 1:26 CT COMMENT TYPE: Discharge Planning REVIEWER: Georgette Escamilla LATE ENTRY 12/10/20 CM called [facility] and left message with [employer] regarding possible acceptance on Wednesday12/11/20 CM called twice and left message with Nadege [employer] at [facility]. CM called back third time and left a message with Arleth Barroso. CM never received a return callback. CM will continue to follow and assist as needed. ENTERED DATE: 12/09/20 14:29 CT COMMENT TYPE: Discharge Planning REVIEWER: Josiane Lovelaceryan Patient's daughter calls back and declines another choice at this time. She wants to see if patient can be discharged Wednesday to [facility] in [place]. I have informed Karen. ENTERED DATE: 12/09/20 11:51 CT COMMENT TYPE: Discharge Planning REVIEWER: Josiane John CM spoke with Arleth with [facility] in [place] and Arleth states they will not have a bed until at lease Wednesday. I called patient's sister to inform her and left a message on her answering machine to return my call. Arleth states that they have sister facilities in [facility] and [facility] that she could refer to if the sister desires. I will speak with the sister about another choice for SNF. ENTERED DATE: 12/06/20 9:57 CT COMMENT TYPE: Discharge Planning REVIEWER: Josiane Lopez CM spoke with Arleth with [facility] in [place] and I faxed clinical per request. CM will continue to follow and assist with discharge planning/needs. ENTERED DATE: 12/06/20 9:30 CT COMMENT TYPE: Discharge Planning REVIEWER: Josiane Lopez CM called [facility] in [place] and spoke with Laura. She states she will tell Arleth and provide her my number. CM will continue to follow and assist with discharge planning/needs. ENTERED DATE: 12/06/20 6:31 CT COMMENT TYPE: Discharge Planning REVIEWER: Georgetet Escamilla Late Entry 12-05-20 CM received a message Marco patient's sister of SNF [facility] she requested [facility] [place] [phone] fax [phone] this facility in [place]. CM will send a referral. and follow up. ENTERED DATE: 12/06/20 6:20 CT COMMENT TYPE: Discharge Planning REVIEWER: Georgette Escamilla LATE ENTRY 12/04/20 CM spoke with patient's sister Marco Griffiths [phone] to complete initial dc planning assessment. Patient lives at home alone.. Patient is independent. At discharge patient will require placement to a SNF. CM discussed availability of home health, rehab services, and medical equipment. CM spoke to Marco about SNF and she was going to look them up on website and speak with siblings and call CM back with [facility], CM will continue to follow and will assist as needed with dc plans/needs. DCP REVIEW SUMMARY ANTICIPATED D/C DATE: EXPECTED LOS : CASE STATUS: DCP Initiated INITIAL REVIEW: 11/25/2020 INITIAL REVIEWER: Georgette Escamilla FINAL DISCHARGE DISPOSITION: : FINAL REVIEWER: FINAL REVIEW DATE: DCP Focus Questions & Answers DCP Screen QUESTION: ANSWER High Risk Factors: : Hosp related to CHF, COPD, DM, End Stage Ds, CVA, CA DCP Evaluation QUESTION: ANSWER Patient and/or caregiver agree upon recommended discharge plan? : Yes Patient's current cognitive status: : Confused Patient's ability to cope with chronic illness : d. No chronic illness Patient gives permission to discuss discharge plans with: (name, relationship and number) : MARCO GRIFFITHS [phone] LUIS TAM [phone] Family / Caregiver's ability to cope with chronic illness: : b. Minimal (occasionally not dependable to meet pt's. needs, can meet pt's. basic ADL's) Alternate discharge plan (if recommended plan not agreed upon by patient and/or caregiver): : SNF -PLACEMENT Does the patient have the ability to pay for or attain post discharge needs / services? : Yes Functional screen assessment: : Noticeable poor ADL management Family / Caregiver's ability to cope with chronic illness: : b. Minimal (occasionally not dependable to meet pt's. needs, can meet pt's. basic ADL's) Physical Status: : Independent with ADL's Is there a likelihood that the patient will require additional services to return to the preadmission environment? : Yes Living Arrangements: : Home Alone with Support Results of this evaluation have been discussed with: : Family Patient with capacity for self-care or can be cared for in same environment as prior to hospitalization? : No Baseline cognitive status: : *Oriented to person, place, situation, time and present Physical environment modification needed / anticipated for discharge: : Yes Planned post hospital services available for patient? : Yes Planned post hospital services covered by insurance plan? : Yes Does Patient have transportation to get home and to follow-up medical appointments when discharged from the hospital? : Yes Would patient like to participate in any Care Coordination programs (if applicable): : Not applicable Does the patient have electricity at home? : Yes Does the patient have running water in their house? : Yes Mental health screen: : No mental health history Resources / Services in place: : None DCP Re-evaluation QUESTION: ANSWER Would patient like to participate in any Care Coordination programs (if applicable): : Not applicable PATIENT: ROSALIA NEWELL ENCOUNTER: [id number] MEDICAL RECORD#: [id number] ADMISSION DATE: 11/25/2020 DISCHARGE DATE: ATTENDING MD: YU PATEL : AGE: 70 MARITAL STATUS: S DC PLAN ID: [id number] FACILITY: [facility] PRINTED ON: 12/12/20 1:53 CT All edits/amendments must be made on the electronic document DICTATION DATE: 12/12/20152 AUTO VINYL TOP INSTALLER: CHAN 12/12/20152 RPT#: [id number] DC DATE: STATUS: ADM IN [facility] [address] [place] [address] END OF REPORT
[2020-12-12 04:00] VITALS: BP 135/60
[2020-12-12 05:52] LABS: BASOPHILS 0.4 % (0-2); HEMATOCRIT 32.5 % (42.0-54.0); HEMOGLOBIN 10.7 g/dL (13.5-17.5); IMMATURE GRANULOCYTES 0.1 % (0-5); LYMPHOCYTE ABS# 0.68 10x3/uL (1.32-3.57); LYMPHOCYTES 8.9 % (15-50); MCH 28.2 pg (26.0-34.0); MCHC 32.9 g/dL (31.0-37.0); MCV 85.8 fL (80.0-100.0); MEAN PLATELET VOLUME 10.8 fL (7.4-10.4); MONOCYTES 8.6 % (2-11); NEUTROPHIL ABS# 6.21 10x3/uL (1.78-5.38); PLATELET COUNT 416 10x3/uL (130-400); RBC 3.79 10x6/uL (4.20-6.10); RDW 13.6 % (11.5-14.5); WBC 7.7 10x3/uL (4.8-10.8)
[2020-12-12 06:10] LABS: ALBUMIN 2.8 g/dL (3.4-5.0); ALKALINE PHOSPHATASE 94 U/L (30-120); ALT (SGPT) 23 U/L (10-68); BILIRUBIN - TOTAL 0.36 mg/dL (0.2-1.3); CALCIUM 8.1 mg/dL (8.5-10.1); CARBON DIOXIDE 24.9 mmol/L (21.0-32.0); CHLORIDE - SERUM 105 mmol/L (98-107); GLUCOSE 113 mg/dL (74-106); PROTEIN - SERUM 6.8 g/dL (6.4-8.2); SODIUM 139 mmol/L (136-145); eGFR NON AFRICAN AMERICAN 79 mL/min (90-120)
[2020-12-12 06:13] LABS: CALC OSMOLALITY 282 mosm/kg (275-300); POTASSIUM - SERUM 4.4 mmol/L (3.5-5.1); UREA NITROGEN 23 mg/dL (7-18)
--- NOTE | 2020-12-12 06:13 | NUR ---
I have reviewed this patient and I concur with the Shift Assessment completed by the Licensed Practical Nurse today this shift.
--- NOTE | 2020-12-12 07:20 | NUR ---
Lying in bed, awake/alert/confused, speech is slurred/garbled/mumbles/difficult to understand, left arm/hand are contracted, T/R frequently for C/C, incont of B/B with use of incont pads ad kathy, pericare provided with daily bath and PRN, no s/s of pain/other discomfort such as grunting/groaning/grimacing observed, G-Tube placement checked via A/A without issues, residual of 10 mL observed, feeding of Osmolyte infusing via pump at rate of 55 mL/hr with H2O flush of 25 mL/hr, tolerating well, no s/s of acute distress observed.
[2020-12-12 08:23] VITALS: BP 154/70
--- NOTE | 2020-12-12 10:20 | MORECARE ---
CASE MANAGEMENT DISCHARGE SUMMARY PATIENT: ROSALIA NEWELL UNIT: [id number] ADM DATE: 11/25/20 AGE: 70 : 52 SEX: M ROOM/BED: D.2108 AUTHOR: MARGY,DOC PHYSICIAN: REFERRING PHYSICIAN: YU MENDOZA MD DATE OF SERVICE: 12/12/20 Case Management Discharge Planning Summary COMMENTS ENTERED DATE: 12/12/20 10:17 CT COMMENT TYPE: Discharge Planning REVIEWER: Josiane Reinoso with [facility] called and states they will accept patient to a skilled bed. He will need to transfer via non urgent ambulance. I faxed updated clinical. She will review and call me when ready for him. I informed Vivienne Chan. ENTERED DATE: 12/12/20 1:26 CT COMMENT TYPE: Discharge Planning REVIEWER: Georgette Escamilla LATE ENTRY 12/10/20 CM called [facility] and left message with Nadege Raymond regarding possible acceptance on Wednesday12/11/20 CM called twice and left message with Nadege Raymond at [facility]. CM called back third time and left a message with Arleth Barroso. CM never received a return callback. CM will continue to follow and assist as needed. ENTERED DATE: 12/09/20 14:29 CT COMMENT TYPE: Discharge Planning REVIEWER: Josiane Lovelaceryan Patient's daughter calls back and declines another choice at this time. She wants to see if patient can be discharged Wednesday to [facility] in [place]. I have informed Karen. ENTERED DATE: 12/09/20 11:51 CT COMMENT TYPE: Discharge Planning REVIEWER: Josiane Lopez CM spoke with Arleth with [facility] in [place] and Arleth states they will not have a bed until at wednesday. I called patient's sister to inform her and left a message on her answering machine to return my call. Arleth states that they have sister facilities in [facility] and [facility] that she could refer to if the sister desires. I will speak with the sister about another choice for SNF. ENTERED DATE: 12/06/20 9:57 CT COMMENT TYPE: Discharge Planning REVIEWER: Josiane Lopez CM spoke with Arleth with [facility] in [place] and I faxed clinical per request. CM will continue to follow and assist with discharge planning/needs. ENTERED DATE: 12/06/20 9:30 CT COMMENT TYPE: Discharge Planning REVIEWER: Josiane Lopez CM called [facility] in [place] and spoke with Laura. She states she will tell Arleth and provide her my number. CM will continue to follow and assist with discharge planning/needs. ENTERED DATE: 12/06/20 6:31 CT COMMENT TYPE: Discharge Planning REVIEWER: Georgette Escamilla Late Entry 12-05-20 CM received a message Marco patient's sister of SNF [facility] she requested [facility] [email or web address] [phone] fax [phone] this facility in [place]. CM will send a referral. and follow up. ENTERED DATE: 12/06/20 6:20 CT COMMENT TYPE: Discharge Planning REVIEWER: Georgette Escamilla LATE ENTRY 12/04/20 CM spoke with patient's sister Marco Griffiths [phone] to complete initial dc planning assessment. Patient lives at home alone.. Patient is independent. At discharge patient will require placement to a SNF. CM discussed availability of home health, rehab services, and medical equipment. CM spoke to Marco about SNF and she was going to look them up on website and speak with siblings and call CM back with [facility], CM will continue to follow and will assist as needed with dc plans/needs. DCP REVIEW SUMMARY ANTICIPATED D/C DATE: EXPECTED LOS : CASE STATUS: DCP Initiated INITIAL REVIEW: 11/25/2020 INITIAL REVIEWER: Georgette Escamilla FINAL DISCHARGE DISPOSITION: : FINAL REVIEWER: FINAL REVIEW DATE: DCP Focus Questions & Answers DCP Screen QUESTION: ANSWER High Risk Factors: : Hosp related to CHF, COPD, DM, End Stage Ds, CVA, CA DCP Evaluation QUESTION: ANSWER Patient and/or caregiver agree upon recommended discharge plan? : Yes Family / Caregiver's ability to cope with chronic illness: : b. Minimal (occasionally not dependable to meet pt's. needs, can meet pt's. basic ADL's) Patient's current cognitive status: : Confused Patient gives permission to discuss discharge plans with: (name, relationship and number) : MARCO GRIFFITHS [phone] LUIS TAM [phone] Patient's ability to cope with chronic illness : d. No chronic illness Alternate discharge plan (if recommended plan not agreed upon by patient and/or caregiver): : SNF -PLACEMENT Does the patient have the ability to pay for or attain post discharge needs / services? : Yes Functional screen assessment: : Noticeable poor ADL management Family / Caregiver's ability to cope with chronic illness: : b. Minimal (occasionally not dependable to meet pt's. needs, can meet pt's. basic ADL's) Physical Status: : Independent with ADL's Is there a likelihood that the patient will require additional services to return to the preadmission environment? : Yes Living Arrangements: : Home Alone with Support Results of this evaluation have been discussed with: : Family Patient with capacity for self-care or can be cared for in same environment as prior to hospitalization? : No Baseline cognitive status: : *Oriented to person, place, situation, time and present Physical environment modification needed / anticipated for discharge: : Yes Planned post hospital services available for patient? : Yes Planned post hospital services covered by insurance plan? : Yes Does Patient have transportation to get home and to follow-up medical appointments when discharged from the hospital? : Yes Would patient like to participate in any Care Coordination programs (if applicable): : Not applicable Does the patient have electricity at home? : Yes Does the patient have running water in their house? : Yes Mental health screen: : No mental health history Resources / Services in place: : None DCP Re-evaluation QUESTION: ANSWER Would patient like to participate in any Care Coordination programs (if applicable): : Not applicable PATIENT: ROSALIA NEWELL ENCOUNTER: [id number] MEDICAL RECORD#: [id number] ADMISSION DATE: 11/25/2020 DISCHARGE DATE: ATTENDING MD: YU PATEL : AGE: 70 MARITAL STATUS: S DC PLAN ID: [id number] FACILITY: [facility] PRINTED ON: 12/12/20 10:20 CT All edits/amendments must be made on the electronic document DICTATION DATE: 12/12/20 1020 LEAD SALES CONSULTANT: CHAN 12/12/20 1020 RPT#: [id number] DC DATE: STATUS: ADM IN [facility] [address] [place] [address] END OF REPORT
[2020-12-12] MEDS ORDERED: CATAPRES TTS-3 TRANSDERM (11:02)
[2020-12-12] MEDS ORDERED: ASPIRIN81 MG NG (11:02)
[2020-12-12] MEDS ORDERED: LIPITOR20 MG PO (11:02)
[2020-12-12] MEDS ORDERED: ALBUTEROL2.5 MG/3 M UPD (11:02)
[2020-12-12] MEDS ORDERED: PLAVIX75 MG PO (11:02)
[2020-12-12] MEDS ORDERED: LOPRESSOR25 MG PO (11:02)
[2020-12-12] MEDS ORDERED: ANUSOL-HC 2.5%30 GM RC (11:03)
[2020-12-12] MEDS ORDERED: PEPCID PO (11:03)
[2020-12-12] MEDS ORDERED: FOLIC ACID1 MG PO (11:03)
[2020-12-12] MEDS ORDERED: VITAMIN B-1100 M1 PO (11:03)
[2020-12-12] MEDS ORDERED: PREPARATION H O57 GM RC (11:03)
[2020-12-12] MEDS ORDERED: ANUSOL-HC25 MG RC (11:03)
[2020-12-12] MEDS ORDERED: MUPIROCIN22 GM NASAL (11:03)
[2020-12-12] MEDS ORDERED: HYDROCODON-ACE1 EAC7 PEG (11:04)
--- NOTE | 2020-12-12 11:59 | MORECARE ---
CASE MANAGEMENT DISCHARGE SUMMARY PATIENT: ROSALIA NEWELL UNIT: [id number] ADM DATE: 11/25/20 AGE: 70 : 52 SEX: M ROOM/BED: D.2108 AUTHOR: MARGY,DOC PHYSICIAN: REFERRING PHYSICIAN: YU MENDOZA MD DATE OF SERVICE: 12/12/20 Case Management Discharge Planning Summary COMMENTS ENTERED DATE: 12/12/20 11:49 CT COMMENT TYPE: Discharge Planning REVIEWER: Josiane Lopez DC today to [facility] to a skilled bed via ambulance. Address: [address] [place], [place] [id number] Accepting Dr Carlo Fabian ENTERED DATE: 12/12/20 10:17 CT COMMENT TYPE: Discharge Planning REVIEWER: Josiane Reinoso with [facility] called and states they will accept patient to a skilled bed. He will need to transfer via non urgent ambulance. I faxed updated clinical. She will review and call me when ready for him. I informed Vivienne Chan. ENTERED DATE: 12/12/20 1:26 CT COMMENT TYPE: Discharge Planning REVIEWER: Georgette Escamilla LATE ENTRY 12/10/20 CM called [facility] and left message with Nadege Raymond regarding possible acceptance on Wednesday12/11/20 CM called twice and left message with Nadege Raymond at [facility]. CM called back third time and left a message with Arleth Barroso. CM never received a return callback. CM will continue to follow and assist as needed. ENTERED DATE: 12/09/20 14:29 CT COMMENT TYPE: Discharge Planning REVIEWER: Josiane Lopez Patient's daughter calls back and declines another choice at this time. She wants to see if patient can be discharged Wednesday to [facility] in [place]. I have informed Karen. ENTERED DATE: 12/09/20 11:51 CT COMMENT TYPE: Discharge Planning REVIEWER: Josiane Lopez CM spoke with Arleth with [facility] in [place] and Arleth states they will not have a bed until at lease Wednesday. I called patient's sister to inform her and left a message on her answering machine to return my call. Arleth states that they have sister facilities in [facility] and [facility] that she could refer to if the sister desires. I will speak with the sister about another choice for SNF. ENTERED DATE: 12/06/20 9:57 CT COMMENT TYPE: Discharge Planning REVIEWER: Josiane Lopez CM spoke with Arleth with [facility] in [place] and I faxed clinical per request. CM will continue to follow and assist with discharge planning/needs. ENTERED DATE: 12/06/20 9:30 CT COMMENT TYPE: Discharge Planning REVIEWER: Josiane Lopez CM called [facility] in [place] and spoke with Laura. She states she will tell Arleth and provide her my number. CM will continue to follow and assist with discharge planning/needs. ENTERED DATE: 12/06/20 6:31 CT COMMENT TYPE: Discharge Planning REVIEWER: Georgette Escamilla Late Entry 12-05-20 CM received a message Marco patient's sister of SNF [facility] she requested [facility] [phone] fax [phone] this facility in [place]. CM will send a referral. and follow up. ENTERED DATE: 12/06/20 6:20 CT COMMENT TYPE: Discharge Planning REVIEWER: Georgette Escamilla LATE ENTRY 12/04/20 CM spoke with patient's sister Marco Griffiths [phone] to complete initial dc planning assessment. Patient lives at home alone.. Patient is independent. At discharge patient will require placement to a SNF. CM discussed availability of home health, rehab services, and medical equipment. CM spoke to Marco about SNF and she was going to look them up on website and speak with siblings and call CM back with [facility], CM will continue to follow and will assist as needed with dc plans/needs. DCP REVIEW SUMMARY ANTICIPATED D/C DATE: EXPECTED LOS : CASE STATUS: DCP Initiated INITIAL REVIEW: 11/25/2020 INITIAL REVIEWER: Georgette Escamilla FINAL DISCHARGE DISPOSITION: : FINAL REVIEWER: FINAL REVIEW DATE: DCP Focus Questions & Answers DCP Screen QUESTION: ANSWER High Risk Factors: : Hosp related to CHF, COPD, DM, End Stage Ds, CVA, CA DCP Evaluation QUESTION: ANSWER Patient and/or caregiver agree upon recommended discharge plan? : Yes Family / Caregiver's ability to cope with chronic illness: : b. Minimal (occasionally not dependable to meet pt's. needs, can meet pt's. basic ADL's) Patient's current cognitive status: : Confused Patient gives permission to discuss discharge plans with: (name, relationship and number) : MARCO GRIFFITHS [phone] LUIS TAM [phone] Patient's ability to cope with chronic illness : d. No chronic illness Alternate discharge plan (if recommended plan not agreed upon by patient and/or caregiver): : SNF -PLACEMENT Does the patient have the ability to pay for or attain post discharge needs / services? : Yes Functional screen assessment: : Noticeable poor ADL management Family / Caregiver's ability to cope with chronic illness: : b. Minimal (occasionally not dependable to meet pt's. needs, can meet pt's. basic ADL's) Physical Status: : Independent with ADL's Is there a likelihood that the patient will require additional services to return to the preadmission environment? : Yes Living Arrangements: : Home Alone with Support Results of this evaluation have been discussed with: : Family Patient with capacity for self-care or can be cared for in same environment as prior to hospitalization? : No Baseline cognitive status: : *Oriented to person, place, situation, time and present Physical environment modification needed / anticipated for discharge: : Yes Planned post hospital services available for patient? : Yes Planned post hospital services covered by insurance plan? : Yes Does Patient have transportation to get home and to follow-up medical appointments when discharged from the hospital? : Yes Would patient like to participate in any Care Coordination programs (if applicable): : Not applicable Does the patient have electricity at home? : Yes Does the patient have running water in their house? : Yes Mental health screen: : No mental health history Resources / Services in place: : None DCP Re-evaluation QUESTION: ANSWER Would patient like to participate in any Care Coordination programs (if applicable): : Not applicable PATIENT: ROSALIA NEWELL ENCOUNTER: [id number] MEDICAL RECORD#: [id number] ADMISSION DATE: 11/25/2020 DISCHARGE DATE: ATTENDING MD: YU PATEL : AGE: 70 MARITAL STATUS: S DC PLAN ID: [id number] FACILITY: [facility] PRINTED ON: 12/12/20 11:59 CT All edits/amendments must be made on the electronic document DICTATION DATE: 12/12/20 1159 PLATEMAKER: DM 12/12/20 1159 RPT#: [id number] DC DATE: STATUS: ADM IN [facility] [address] [place] [address] END OF REPORT
--- NOTE | 2020-12-12 12:30 | NUR ---
Provided written discharge instructions/education.
--- NOTE | 2020-12-12 12:47 | MORECARE ---
CASE MANAGEMENT DISCHARGE SUMMARY PATIENT: ROSALIA NEWELL UNIT: [id number] ADM DATE: 11/25/20 AGE: 70 : 54 SEX: M ROOM/BED: D.2108 AUTHOR: MARGY,DOC PHYSICIAN: REFERRING PHYSICIAN: YU MENDOZA MD DATE OF SERVICE: 12/12/20 Case Management Discharge Planning Summary COMMENTS ENTERED DATE: 12/12/20 12:40 CT COMMENT TYPE: Discharge Planning REVIEWER: Josiane Lopez Received a call from [facility] that they are ready for patient and to have ambulance picking supervisor. He is going to [facility], Cottage #1, bed #10. Report called to [phone] or [phone]. DC to a skilled bed. I have notified his sister. Nurse to call sister when ambulance arrives. I have notified nurse, Kassandra of all of the above. ENTERED DATE: 12/12/20 11:49 CT COMMENT TYPE: Discharge Planning REVIEWER: Josiane Lopez DC today to [place] to a skilled bed via ambulance. Address: [address] [place], [place] [id number] Accepting Dr Carlo Fabian ENTERED DATE: 12/12/20 10:17 CT COMMENT TYPE: Discharge Planning REVIEWER: Josianevik Lopez Arleth with [facility] called and states they will accept patient to a skilled bed. He will need to transfer via non urgent ambulance. I faxed updated clinical. She will review and call me when ready for him. I informed Vivienne Chan. ENTERED DATE: 12/12/20 1:26 CT COMMENT TYPE: Discharge Planning REVIEWER: Georgette Escamilla LATE ENTRY 12/10/20 CM called [facility] and left message with Nadege Raymond regarding possible acceptance on Wednesday12/11/20 CM called twice and left message with Nadege Raymond at [facility]. CM called back third time and left a message with [facility]. CM never received a return callback. CM will continue to follow and assist as needed. ENTERED DATE: 12/09/20 14:29 CT COMMENT TYPE: Discharge Planning REVIEWER: Josiane Lovelaceryan Patient's daughter calls back and declines another choice at this time. She wants to see if patient can be discharged Wednesday to [facility] in [place]. I have informed Karen. ENTERED DATE: 12/09/20 11:51 CT COMMENT TYPE: Discharge Planning REVIEWER: Josiane Lopez CM spoke with Arleth with [facility] in [place] and [facility]leth states they will not have a bed until at lease Wednesday. I called patient's sister to inform her and left a message on her answering machine to return my call. Arleth states that they have sister facilities in [facility] and [facility] that she could refer to if the sister desires. I will speak with the sister about another choice for SNF. ENTERED DATE: 12/06/20 9:57 CT COMMENT TYPE: Discharge Planning REVIEWER: Josiane Lopez CM spoke with Arleth with [facility] in [place] and I faxed clinical per request. CM will continue to follow and assist with discharge planning/needs. ENTERED DATE: 12/06/20 9:30 CT COMMENT TYPE: Discharge Planning REVIEWER: Josiane Lopez CM called [facility] in [place] and spoke with Laura. She states she will tell Arleth and provide her my number. CM will continue to follow and assist with discharge planning/needs. ENTERED DATE: 12/06/20 6:31 CT COMMENT TYPE: Discharge Planning REVIEWER: Georgette Escamilla Late Entry 12-05-20 CM received a message Marco patient's sister of SNF [facility] she requested [facility] [place] [phone] fax [phone] this facility in [place]. CM will send a referral. and follow up. ENTERED DATE: 12/06/20 6:20 CT COMMENT TYPE: Discharge Planning REVIEWER: Georgette Escamilla LATE ENTRY 12/04/20 CM spoke with patient's sister Marco Griffiths [phone] to complete initial dc planning assessment. Patient lives at home alone.. Patient is independent. At discharge patient will require placement to a SNF. CM discussed availability of home health, rehab services, and medical equipment. CM spoke to Marco about SNF and she was going to look them up on website and speak with siblings and call CM back with [facility], CM will continue to follow and will assist as needed with dc plans/needs. DCP REVIEW SUMMARY ANTICIPATED D/C DATE: EXPECTED LOS : CASE STATUS: DCP Initiated INITIAL REVIEW: 11/25/2020 INITIAL REVIEWER: Georgette Escamilla FINAL DISCHARGE DISPOSITION: : FINAL REVIEWER: FINAL REVIEW DATE: DCP Focus Questions & Answers DCP Screen QUESTION: ANSWER High Risk Factors: : Hosp related to CHF, COPD, DM, End Stage Ds, CVA, CA DCP Evaluation QUESTION: ANSWER Patient and/or caregiver agree upon recommended discharge plan? : Yes Family / Caregiver's ability to cope with chronic illness: : b. Minimal (occasionally not dependable to meet pt's. needs, can meet pt's. basic ADL's) Patient's current cognitive status: : Confused Patient gives permission to discuss discharge plans with: (name, relationship and number) : MARCO GRIFFITHS [phone] LUIS TAM [phone] Patient's ability to cope with chronic illness : d. No chronic illness Alternate discharge plan (if recommended plan not agreed upon by patient and/or caregiver): : SNF -PLACEMENT Does the patient have the ability to pay for or attain post discharge needs / services? : Yes Functional screen assessment: : Noticeable poor ADL management Family / Caregiver's ability to cope with chronic illness: : b. Minimal (occasionally not dependable to meet pt's. needs, can meet pt's. basic ADL's) Physical Status: : Independent with ADL's Is there a likelihood that the patient will require additional services to return to the preadmission environment? : Yes Living Arrangements: : Home Alone with Support Results of this evaluation have been discussed with: : Family Patient with capacity for self-care or can be cared for in same environment as prior to hospitalization? : No Baseline cognitive status: : *Oriented to person, place, situation, time and present Physical environment modification needed / anticipated for discharge: : Yes Planned post hospital services available for patient? : Yes Planned post hospital services covered by insurance plan? : Yes Does Patient have transportation to get home and to follow-up medical appointments when discharged from the hospital? : Yes Would patient like to participate in any Care Coordination programs (if applicable): : Not applicable Does the patient have electricity at home? : Yes Does the patient have running water in their house? : Yes Mental health screen: : No mental health history Resources / Services in place: : None DCP Re-evaluation QUESTION: ANSWER Would patient like to participate in any Care Coordination programs (if applicable): : Not applicable PATIENT: ROSALIA NEWELL ENCOUNTER: [id number] MEDICAL RECORD#: [id number] ADMISSION DATE: 11/25/2020 DISCHARGE DATE: ATTENDING MD: YU PATEL : AGE: 70 MARITAL STATUS: S DC PLAN ID: [id number] FACILITY: [facility] PRINTED ON: 12/12/20 12:47 CT All edits/amendments must be made on the electronic document DICTATION DATE: 12/12/201246 REAL ESTATE SALES AGENT: CHAN 12/12/201246 RPT#: [id number] DC DATE: STATUS: ADM IN [facility] [address] [place] [address] END OF REPORT
--- NOTE | 2020-12-12 13:26 | NUR ---
Called report to [facility] [place].
--- NOTE | 2020-12-12 15:15 | NUR ---
DC'd via stretcher in stable condition accompanied by ambulance attendants.
--- NOTE | 2020-12-13 09:22 | MORECARE ---
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 He is going to [facility], Cottage [facility], bed #10. Report called to [phone] or [phone]. DC to a skilled bed. I have notified his sister. Nurse to call sister when ambulance arrives. I have notified nurse, Kassandra of all of the above. ENTERED DATE: 12/12/20 11:49 CT COMMENT TYPE: Discharge Planning REVIEWER: Josiane Lopez DC today to [place] to a skilled bed via ambulance. Address: [address] [place], [place] [phone] Accepting Dr Carlo Fabian ENTERED DATE: 12/12/20 10:17 CT COMMENT TYPE: Discharge Planning REVIEWER: Josianevik Lopez Arleth with [facility] called and states they will accept patient to a skilled bed. He will need to transfer via non urgent ambulance. I faxed updated clinical. She will review and call me when ready for him. I informed Vivienne Chan. ENTERED DATE: 12/12/20 1:26 CT COMMENT TYPE: Discharge Planning REVIEWER: Georgette Escamilla LATE ENTRY 12/10/20 CM called [facility] and left message with Nadege Raymond regarding possible acceptance on Wednesday12/11/20 CM called twice and left message with Nadege Raymond at [facility]. CM called back third time and left a message with [facility]. CM never received a return callback. CM will continue to follow and assist as needed. ENTERED DATE: 12/09/20 14:29 CT COMMENT TYPE: Discharge Planning REVIEWER: Josiane Lovelaceryan Patient's daughter calls back and declines another choice at this time. She wants to see if patient can be discharged Wednesday to [facility] in [place]. I have informed Karen. ENTERED DATE: 12/09/20 11:51 CT COMMENT TYPE: Discharge Planning REVIEWER: Josiane Lopez CM spoke with Arleth with [facility] in [place] and Arleth states they will not have a bed until at lease Wednesday. I called patient's sister to inform her and left a message on her answering machine to return my call. Arleth states that they have sister facilities in [facility] and [facility] that she could refer to if the sister desires. I will speak with the sister about another choice for SNF. ENTERED DATE: 12/06/20 9:57 CT COMMENT TYPE: Discharge Planning REVIEWER: Josiane Lopez CM spoke with Arleth with [facility] in [place] and I faxed clinical per request. CM will continue to follow and assist with discharge planning/needs. ENTERED DATE: 12/06/20 9:30 CT COMMENT TYPE: Discharge Planning REVIEWER: Josiane Lopez CM called [facility] in [place] and spoke with Laura. She states she will tell [facility]leth and provide her my number. CM will continue to follow and assist with discharge planning/needs. ENTERED DATE: 12/06/20 6:31 CT COMMENT TYPE: Discharge Planning REVIEWER: Georgette Escamilla Late Entry 12-05-20 CM received a message Marco patient's sister of SNF [facility] she requested [facility] [place] [phone] fax [phone] this facility in [place]. CM will send a referral. and follow up. ENTERED DATE: 12/06/20 6:20 CT COMMENT TYPE: Discharge Planning REVIEWER: Georgette Escamilla LATE ENTRY 12/04/20 CM spoke with patient's sister Marco Griffiths [phone] to complete initial dc planning assessment. Patient lives at home alone.. Patient is independent. At discharge patient will require placement to a SNF. CM discussed availability of home health, rehab services, and medical equipment. CM spoke to Marco about SNF and she was going to look them up on website and speak with siblings and call CM back with [facility], CM will continue to follow and will assist as needed with dc plans/needs. DCP REVIEW SUMMARY ANTICIPATED D/C DATE: EXPECTED LOS : CASE STATUS: DCP Initiated INITIAL REVIEW: 11/25/2020 INITIAL REVIEWER: Georgette Escamilla FINAL DISCHARGE DISPOSITION: : FINAL REVIEWER: FINAL REVIEW DATE: DCP Focus Questions & Answers DCP Screen QUESTION: ANSWER High Risk Factors: : Hosp related to CHF, COPD, DM, End Stage Ds, CVA, CA DCP Evaluation QUESTION: ANSWER Patient and/or caregiver agree upon recommended discharge plan? : Yes Patient's current cognitive status: : Confused Patient's ability to cope with chronic illness : d. No chronic illness Patient gives permission to discuss discharge plans with: (name, relationship and number) : MARCO GRIFFITHS [phone] LUIS TAM [phone] Family / Caregiver's ability to cope with chronic illness: : b. Minimal (occasionally not dependable to meet pt's. needs, can meet pt's. basic ADL's) Alternate discharge plan (if recommended plan not agreed upon by patient and/or caregiver): : SNF -PLACEMENT Does the patient have the ability to pay for or attain post discharge needs / services? : Yes Functional screen assessment: : Noticeable poor ADL management Family / Caregiver's ability to cope with chronic illness: : b. Minimal (occasionally not dependable to meet pt's. needs, can meet pt's. basic ADL's) Physical Status: : Independent with ADL's Is there a likelihood that the patient will require additional services to return to the preadmission environment? : Yes Living Arrangements: : Home Alone with Support Results of this evaluation have been discussed with: : Family Patient with capacity for self-care or can be cared for in same environment as prior to hospitalization? : No Baseline cognitive status: : *Oriented to person, place, situation, time and present Physical environment modification needed / anticipated for discharge: : Yes Planned post hospital services available for patient? : Yes Planned post hospital services covered by insurance plan? : Yes Does Patient have transportation to get home and to follow-up medical appointments when discharged from the hospital? : Yes Would patient like to participate in any Care Coordination programs (if applicable): : Not applicable Does the patient have electricity at home? : Yes Does the patient have running water in their house? : Yes Mental health screen: : No mental health history Resources / Services in place: : None DCP Re-evaluation QUESTION: ANSWER Would patient like to participate in any Care Coordination programs (if applicable): : Not applicable PATIENT: ROSALIA NEWELL ENCOUNTER: [id number] MEDICAL RECORD#: [id number] ADMISSION DATE: 11/25/2020 DISCHARGE DATE: 12/12/2020 ATTENDING MD: YU PATEL : AGE: 70 MARITAL STATUS: S DC PLAN ID: [id number] FACILITY: [facility] PRINTED ON: 12/13/20 9:22 CT All edits/amendments must be made on the electronic document DICTATION DATE: 12/13/20921 AERIAL CROP DUSTER: CHAN 12/13/20921 RPT#: [id number] DC DATE:12/12/20 STATUS: DIS IN [facility] [address] [place] [address] END OF REPORT
--- NOTE | 2020-12-13 19:45 | MORECARE ---
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 He is going to [facility], Cottage #1, bed #10. Report called to [phone] or [phone]. DC to a skilled bed. I have notified his sister. Nurse to call sister when ambulance arrives. I have notified nurse, Kassanrda of all of the above. ENTERED DATE: 12/12/20 11:49 CT COMMENT TYPE: Discharge Planning REVIEWER: Josiane Lopez DC today to [place] to a skilled bed via ambulance. Address: [address] [place], [place] [phone] Accepting Dr Carlo Fabian ENTERED DATE: 12/12/20 10:17 CT COMMENT TYPE: Discharge Planning REVIEWER: Josianevik Lopez Arleth with [facility] called and states they will accept patient to a skilled bed. He will need to transfer via non urgent ambulance. I faxed updated clinical. She will review and call me when ready for him. I informed Vivienne Chan. ENTERED DATE: 12/12/20 1:26 CT COMMENT TYPE: Discharge Planning REVIEWER: Georgette Escamilla LATE ENTRY 12/10/20 CM called [facility] and left message with Nadege Raymond regarding possible acceptance on Wednesday12/11/20 CM called twice and left message with Nadege Raymond at [facility]. CM called back third time and left a message with [facility]. CM never received a return callback. CM will continue to follow and assist as needed. ENTERED DATE: 12/09/20 14:29 CT COMMENT TYPE: Discharge Planning REVIEWER: Josiane Lovelaceryan Patient's daughter calls back and declines another choice at this time. She wants to see if patient can be discharged Wednesday to [facility] in [place]. I have informed Karen. ENTERED DATE: 12/09/20 11:51 CT COMMENT TYPE: Discharge Planning REVIEWER: Josiane Lopez CM spoke with Arleth with [facility] [place] and [facility]leth states they will not have a bed until at lease Wednesday. I called patient's sister to inform her and left a message on her answering machine to return my call. Arleth states that they have sister facilities in [facility] and [facility] that she could refer to if the sister desires. I will speak with the sister about another choice for SNF. ENTERED DATE: 12/06/20 9:57 CT COMMENT TYPE: Discharge Planning REVIEWER: Josiane Lopez CM spoke with Arleth with [facility] in [place] and I faxed clinical per request. CM will continue to follow and assist with discharge planning/needs. ENTERED DATE: 12/06/20 9:30 CT COMMENT TYPE: Discharge Planning REVIEWER: Josiane Lopez CM called [facility] in [place] and spoke with Laura. She states she will tell Arleth and provide her my number. CM will continue to follow and assist with discharge planning/needs. ENTERED DATE: 12/06/20 6:31 CT COMMENT TYPE: Discharge Planning REVIEWER: Georgette Escamilla Late Entry 12-05-20 CM received a message Marco patient's sister of SNF [facility] she requested [facility] [place] [phone] fax [phone] this facility in [place]. CM will send a referral. and follow up. ENTERED DATE: 12/06/20 6:20 CT COMMENT TYPE: Discharge Planning REVIEWER: Georgette Escamilla LATE ENTRY 12/04/20 CM spoke with patient's sister Marco Griffiths [phone] to complete initial dc planning assessment. Patient lives at home alone.. Patient is independent. At discharge patient will require placement to a SNF. CM discussed availability of home health, rehab services, and medical equipment. CM spoke to Marco about SNF and she was going to look them up on website and speak with siblings and call CM back with [facility], CM will continue to follow and will assist as needed with dc plans/needs. DCP REVIEW SUMMARY ANTICIPATED D/C DATE: EXPECTED LOS : CASE STATUS: DCP Initiated INITIAL REVIEW: 11/25/2020 INITIAL REVIEWER: Georgette Escamilla FINAL DISCHARGE DISPOSITION: : FINAL REVIEWER: FINAL REVIEW DATE: DCP Focus Questions & Answers DCP Screen QUESTION: ANSWER High Risk Factors: : Hosp related to CHF, COPD, DM, End Stage Ds, CVA, CA DCP Evaluation QUESTION: ANSWER Patient and/or caregiver agree upon recommended discharge plan? : Yes Patient's current cognitive status: : Confused Patient's ability to cope with chronic illness : d. No chronic illness Patient gives permission to discuss discharge plans with: (name, relationship and number) : MARCO GRIFFITHS [phone] LUIS TAM [phone] Family / Caregiver's ability to cope with chronic illness: : b. Minimal (occasionally not dependable to meet pt's. needs, can meet pt's. basic ADL's) Alternate discharge plan (if recommended plan not agreed upon by patient and/or caregiver): : SNF -PLACEMENT Does the patient have the ability to pay for or attain post discharge needs / services? : Yes Functional screen assessment: : Noticeable poor ADL management Family / Caregiver's ability to cope with chronic illness: : b. Minimal (occasionally not dependable to meet pt's. needs, can meet pt's. basic ADL's) Physical Status: : Independent with ADL's Is there a likelihood that the patient will require additional services to return to the preadmission environment? : Yes Living Arrangements: : Home Alone with Support Results of this evaluation have been discussed with: : Family Patient with capacity for self-care or can be cared for in same environment as prior to hospitalization? : No Baseline cognitive status: : *Oriented to person, place, situation, time and present Physical environment modification needed / anticipated for discharge: : Yes Planned post hospital services available for patient? : Yes Planned post hospital services covered by insurance plan? : Yes Does Patient have transportation to get home and to follow-up medical appointments when discharged from the hospital? : Yes Would patient like to participate in any Care Coordination programs (if applicable): : Not applicable Does the patient have electricity at home? : Yes Does the patient have running water in their house? : Yes Mental health screen: : No mental health history Resources / Services in place: : None DCP Re-evaluation QUESTION: ANSWER Would patient like to participate in any Care Coordination programs (if applicable): : Not applicable PATIENT: ROSALIA NEWELL ENCOUNTER: [id number] MEDICAL RECORD#: [id number] ADMISSION DATE: 11/25/2020 DISCHARGE DATE: 12/12/2020 ATTENDING MD: YU PATEL : AGE: 70 MARITAL STATUS: S DC PLAN ID: [id number] FACILITY: [facility] PRINTED ON: 12/13/20 19:45 CT All edits/amendments must be made on the electronic document DICTATION DATE: 12/13/201944 COST ACCOUNTANT: CHAN 12/13/201944 RPT#: [id number] DC DATE:12/12/20 STATUS: DIS IN [facility] [address] [place] [address] END OF REPORT
== END 2020-12-12 15:37 | DRG 981 ==
LOC: D.ER 19:33 → D.M2 20:50 → D.MS 20:50 → D.ICU 11-28 16:13 → D.M2 12-01 14:43
PROVIDERS: Emergency Medicine; Family Medicine; Internal Medicine Interventional Cardiology; ADMIT Emergency Medicine; ATTEND Emergency Medicine
PROC: B2151ZZ Fluoroscopy of Left Heart using Low Osmolar Contrast (ICD-10-PCS; 2020-11-27)
PROC: 4A023N7 Measurement of Cardiac Sampling and Pressure, Left Heart, Percutaneous Approach (ICD-10-PCS; 2020-11-27)
PROC: 02703DZ Dilation of Coronary Artery, One Artery with Intraluminal Device, Percutaneous Approach (ICD-10-PCS; principal; 2020-11-27 09:43)
PROC: B2111ZZ Fluoroscopy of Multiple Coronary Arteries using Low Osmolar Contrast (ICD-10-PCS; 2020-11-27 09:43)
PROC: 0DB78ZX Excision of Stomach, Pylorus, Via Natural or Artificial Opening Endoscopic, Diagnostic (ICD-10-PCS; 2020-12-03)
PROC: 0DH63UZ Insertion of Feeding Device into Stomach, Percutaneous Approach (ICD-10-PCS; 2020-12-03)
DX: I63.511 Cerebral infarction due to unspecified occlusion or stenosis of right middle cerebral artery (principal); I21.4 Non-ST elevation (NSTEMI) myocardial infarction; G92 Toxic encephalopathy; N17.9 Acute kidney failure, unspecified; G81.94 Hemiplegia, unspecified affecting left nondominant side; F01.51 Vascular dementia, unspecified severity, with behavioral disturbance; D68.318 Other hemorrhagic disorder due to intrinsic circulating anticoagulants, antibodies, or inhibitors; K62.5 Hemorrhage of anus and rectum; T43.625A Adverse effect of amphetamines, initial encounter; I10 Essential (primary) hypertension; E03.9 Hypothyroidism, unspecified; N40.0 Benign prostatic hyperplasia without lower urinary tract symptoms; R53.1 Weakness; I65.29 Occlusion and stenosis of unspecified carotid artery; I69.318 Other symptoms and signs involving cognitive functions following cerebral infarction; I69.322 Dysarthria following cerebral infarction; K29.00 Acute gastritis without bleeding